=== PATIENT | female | born 1965 | race Caucasian/White ===

== ENCOUNTER 2019-11-19 11:01 | Inpatient (IN) ==
--- NOTE | 2019-11-19 13:16 | Diag Imaging Result Doc PS360 ---
CT ABDOMEN/PELVIS W/O CONTRAST - 11/19/2019 INDICATION: right flank pain COMPARISON: 10/08/2017 FINDINGS: There are small pulmonary nodules scattered throughout the lung bases bilaterally. These all appear grossly stable from prior. These measure 6 mm or less. Some of these are clearly calcified granulomas. Heart size is normal with no pericardial effusion. There is delayed enhancement of the kidneys compatible with renal failure. No urinary obstruction. No bowel obstruction or inflammation. Urinary bladder and rectum are normal. There are moderate degenerative changes of the spine. No acute or suspicious bony lesion. IMPRESSION: There is renal failure which was not present in September 2019. No structural abnormalities. This exam was performed using automated exposure control, adjustment of mA or kV according to patient size, and/or use of iterative reconstruction technique Electronically signed by Benji Rai 11/19/2019 1:13 PM
[2019-11-19 14:33] LABS: BASO# 0.03 X1000 (0.0-0.2); BASO% 0.4 % (0.0-0.8); EOS# 0.17 X1000 (0.0-0.7); EOS% 2.2 % (0.0-10.0); HEMOGLOBIN 11.6 g/dL (12.0-16.0); IMM GRAN# 0.02 X1000 (0.0-0.04); IMM GRAN% 0.3 % (0.0-0.5); LYMPH# 0.69 X1000 (1.2-3.4); MCH 30.2 PG (27-31); MCHC 32.2 g/dL (33-37); MCV 93.8 FL (81-99); MONO# 0.33 X1000 (0.11-0.59); MONO% 4.3 % (1.7-9.3); MPV 11.9 FL (7.4-10.4); NEUT# 6.46 X1000 (1.4-6.5); NEUT% 83.8 % (42.2-75.2); PLT 129 X1000 (130-400); RBC 3.84 XMIL (4.2-5.4); RDW 12.8 % (11.5-14.5)
[2019-11-19 15:01] LABS: ALB/GLOB RATIO 1.2; ALBUMIN 3.8 g/dL (3.5-5.0); CALCIUM 9.3 mg/dL (8.8-10.2); CREATININE 8.2 mg/dL (0.5-0.9); TOTAL BILIRUBIN 0.68 mg/dL (0.20-1.00); TOTAL PROTEIN 6.9 g/dL (6.3-8.3)
[2019-11-19 15:03] LABS: POTASSIUM 6.7 mmol/L (3.5-5.1)
[2019-11-19] MEDS ORDERED: D50W SYRINGE IV ONE ×2 (15:49→16:23)
[2019-11-19] MEDS ORDERED: ALBUTEROL 0.5% INH CONC FOR HYPERKALEMIA INH ONE (15:50)
[2019-11-19] MEDS ORDERED: CALCIUM CHLORIDE 1 GM in NS 100 ML IV ONE (15:50)
[2019-11-19] MEDS ORDERED: NS 1,000 ML IV ONE (15:51)
[2019-11-19] MEDS ORDERED: HUMULIN R IV ONE (16:23)
--- NOTE | 2019-11-19 16:32 | PROVIDER DOCUMENTATION ---
This chart was entered by Dirk Armendariz Scribe, acting as scribe for Bridgette Smiley MD. HPI-Abdominal Pain/GI Problem - General Chief Complaint: Abnormal Lab[s] Stated Complaint: LEFT FLANK PAIN Time Seen by Provider: 11/19/19 11:48 Source: patient Allergies/Adverse Reactions: Patient Allergies Allergy/AdvReac Type Severity Reaction Status Date / Time No Known Allergies Allergy Verified 11/19/19 11:42 Home Medications: Home Medication List Medication Instructions Recorded Confirmed Last Taken Type LISINOpril [Prinivil] 20 mg PO DAILY 10/18/14 11/19/19 11/19/19 History Aspirin [Aspirin EC] 81 mg PO DAILY 11/19/19 11/19/19 11/18/19 History Famotidine 20 mg PO DAILY 11/19/19 11/19/19 11/19/19 History Paroxetine HCl [Paxil] 20 mg PO DAILY 11/19/19 11/19/19 11/19/19 History Rosuvastatin Calcium 40 mg PO HS 11/19/19 11/19/19 11/18/19 History Sitagliptin Phos/Metformin HCl 50 - 500 mg PO BID 11/19/19 11/19/19 11/19/19 History [Janumet 50-500 mg Tablet] Trazodone [Desyrel] 50 mg PO HS 11/19/19 11/19/19 11/19/19 History - History of Present Illness-ABD Nature of Presenting Problems: 54 y/o F presents to the ED c/o dysuria, LLQ pain, Left flank pain and vomiting. Onset x2 days ago. Patient reports that she was referred to ED for "kidney failure". Patient's mother reports that patient had outpatient blood work drawn yesterday. Patient has lost 12 lbs. in 3 weeks. Patient denies shortness of breath, fever and all other symptoms. Abdominal Pain Onset Location: reports: LLQ, flank Pain Radiation: reports: no radiation Quality of Pain: reports: aching, burning Severity in ED: reports: moderate Onset/Duration: reports: 2 days ago Timing: reports: still present Activities at Onset: reports: none Review of Systems - Adult - REVIEW OF SYSTEMS - ADULT Constitutional: denies: chills, fever Eyes: reports: no symptoms reported Ears, Nose, Mouth & Throat: reports: no symptoms reported Cardiovascular: denies: chest pain, palpitations Respiratory: reports: no symptoms reported Gastrointestinal: reports: abdominal pain, nausea, vomiting. denies: constipation, diarrhea Genitourinary: reports: dysuria, flank pain. denies: discharge Musculoskeletal: reports: no symptoms reported Integumentary: reports: no symptoms reported Neurological: denies: dizziness/vertigo, headache/migraines Psychiatric: reports: no symptoms reported Endocrine: reports: no symptoms reported Hematologic/Lymphatic: reports: no symptoms reported Allergic/Immunologic: reports: no symptoms reported All Other Systems: Reviewed and Negative Past History - Adult - PAST MEDICAL HISTORY-ADULT Review of Records: reports: Nursing Assessment Review, Medications Reviewed Major Childhood Illnesses: reports: denies history Cardiovascular: reports: HTN, hyperlipidemia Respiratory: reports: denies history Gastrointestinal: reports: denies history Obstetrical/Gynecological: reports: denies history Genitourinary: reports: denies history Musculoskeletal: reports: denies history Neurological: reports: denies history Psychiatric: reports: anxiety, depression Endocrine/Immune: reports: Diabetes Other Conditions: reports: denies history - PRIOR SURGERIES/PROCEDURES Surgical/Procedure History: reports: none - IMMUNIZATION STATUS Childhood Immunizations: See Nurse Assessment Flu Vaccine: See Nurse Assessment - FAMILY HISTORY Family History: reviewed, not pertinent - SOCIAL HISTORY Smoking: denies Alcohol Use Frequency: never Physical Exam-General - PHYSICAL EXAM-ADULT Initial Vital Signs Reviewed: Yes (blood pressure on exam 97/47) - CONSTITUTIONAL General Appearance: alert, no apparent distress - EYES Eyes: pink conjunctivae - HEAD, EARS, NOSE, MOUTH & THROAT HENMT: moist mucous membranes, normal ENT inspection - NECK Neck: full range of motion, normal inspection - RESPIRATORY Respiratory: lungs clear, normal breath sounds, no respiratory distress, no accessory muscle use - CARDIOVASCULAR Cardiovascular: normal peripheral pulses, regular rate, rhythm - GASTROINTESTINAL (ABDOMEN) Abdominal Exam: non tender, soft - LYMPHATIC Lymphatic: no adenopathy - MUSCULOSKELETAL Back Exam: normal inspection Extremity: normal inspection - SKIN Integumentary: normal color, warm/dry - NEUROLOGIC Neurologic: no motor/sensory deficits - PSYCHIATRIC Psych/Mental Status: normal mood/affect, oriented x 3 Progress - PLAN OF CARE/RESULTS Progress/Plan/Lab Results: Vital Signs - 8 hr 11/19/19 11:09 Temperature 97.4 F L Pulse Rate 79 Respiratory Rate 19 Blood Pressure 91/63 O2 Sat by Pulse Oximetry 98 Laboratory Results - last 24 hr 11/19/19 11:58 POC Glucose 48 L Orders Category Date Time Status Saline Loc DIRECTED Care 11/19/19 12:21 Active NPO Diet 11/19/19 12:[address] ABDOMEN/PELVIS W/O CONTRAST [CT] Stat Exams 11/19/19 12:21 Ordered AMYLASE [CHEM] Stat Lab 11/19/19 12:21 Uncollected CBC WITH ELECTRONIC DIFF [HEME] Stat Lab 11/19/19 12:21 Uncollected COMPREHENSIVE METABOLIC PANEL [CHEM] Stat Lab 11/19/19 12:21 Uncollected LIPASE [CHEM] Stat Lab 11/19/19 12:21 Uncollected URINALYSIS W/POSS RFLX CULT [URINALYSIS] Stat Lab 11/19/19 12:21 Uncollected Result Diagrams: 11/19/19 14:19 11/19/19 14:19 - CONSULTS/PCP/HOSPITALIST Notification #1 *Consult/PCP/Hospitalist*: [facility] Time Discussed: 16:32 Consult Disposition: Admit ([facility] accepted patient for Dr Dodd) Departure - Departure Date of Disposition Decision: 11/19/19 Time of Disposition Decision: 16:31 DIAGNOSIS: Hyperkalemia Renal failure Qualifiers: Renal failure chronicity: acute Acute renal failure type: unspecified Qualified Code(s): N17.9 - Acute kidney failure, unspecified Disposition: ADMITTED INPATIENT 09 Certified Medical Emergency: Emergent Condition: Critical - Critical Care Note This patient required my direct & personal management of CC.: Yes Total Time (mins): 31 Critical Care Statement: This patient required my direct personal management to treat or rule out processes, the absence of which, could potentiallly result in sudden, clinically significant life or limb threatening deterioration. Attestation - Physician/ MICHAEL Attestation Patient care was provided by Advanced Practice Provider:: No The physician spent face to face time with patient:: Yes Advanced Practice Provider documentation review:: Supervising physician onsite and consulted in the evaluation and care of this patient. The physician did have a face to face encounter with the patient. This chart was documented by the indicated scribe, (Dirk Armendariz Scribe) and accurately reflects the services I performed and decisions made by me, Bridgette Smiley MD, as attested by the provider's signature.
[2019-11-19] MEDS ORDERED: SODIUM BICARBONATE 8.4% IV PUSH ONE (17:04)
[2019-11-19] MEDS ORDERED: VELTASSA PO ONE (17:04)
[2019-11-19] MEDS ORDERED: ZOFRAN IV ONE (17:32)
--- NOTE | 2019-11-19 17:39 | HISTORY AND PHYSICAL ---
HISTORY OF PRESENT ILLNESS: This is a 54-year-old who lives by herself in [place] behind her parents. Her past medical history is consistent with anxiety and depression, hypertension, and that is really about it, but for the last month and a half, she has not felt good. She has persistent nausea and vomiting. She has not been eating or drinking much. Her primary care doctor sent her to the emergency room, I think last week and her creatinine was 5.5, and she came back to the emergency room just feeling poorly, and her creatinine was up to 8 with potassium of 6. She denies any fever or chills. No change in her bowels. No cough or sputum production. No trouble breathing. No chest pain or palpitations. No abdominal pain. She did develop a little left lower quadrant discomfort, but really for the most part, denies any abdominal pain. Abdominal and pelvic CT done in the emergency room, there are small pulmonary nodules scattered throughout the lung base bilaterally. These appear grossly stable, measure 6 mm or less, clearly calcified granulomas. Heart size is normal. No pericardial effusion. Delayed enhancement of the kidneys compatible with renal failure. No urinary obstruction. No bowel obstruction or inflammation. Urinary bladder and rectum are normal. This was compared to film on 10/08/2017. FAMILY HISTORY: Positive for cancer, diabetes, and coronary artery disease. SOCIAL HISTORY: Negative for alcohol or tobacco. DIAGNOSTIC DATA: Note, she had a pelvic ultrasound done yesterday, and she had a 1.8 cm right ovarian cyst, a 1.9 cm left ovarian cyst, otherwise unremarkable. She had a head CT done on 11/18/2019, negative exam, was without contrast. Abdominal ultrasound done on 11/18/2019, a few small hyperechoic liver lesions measuring 0.9 cm, which represent cavernous hemangiomas. There was diffusely mild echogenic renal cortices which can be seen with renal medical disease versus technical artifact. She had an abdominal and pelvic CTA done on 10/08/2017, small left ovarian cyst, borderline enlarged left inguinal lymph nodes, fatty liver, old compression deformity at L5. REVIEW OF SYSTEMS: General: She has lost quite a bit of weight in the last couple weeks. I think about 20 pounds by her report. Not eating or drinking. No fever or chills. HEENT: No change in visual or hearing acuity. Respiratory: No increased work of breathing or dyspnea. Cardiovascular: No chest pain or tachy palpitation. Gastrointestinal/Genitourinary: No change in her bowels. No gross hematochezia. No hemoptysis, but she has had nausea and she has vomited several times each day for the last, she would say, 4 weeks or so. Musculoskeletal/Neurologic: No focal complaints. Her strength is good. She is able to ambulate. No trouble with her speech or swallow. No trouble getting food down. Endocrinologic/hematologic: No significant history. PHYSICAL EXAMINATION: GENERAL: Well-developed, well-nourished, white female. HEENT: Pupils are equal and round. LUNGS: Clear in all lung coleman. CVP less than 6 cm. No elevation of CVP appreciated. PMI nondisplaced. CARDIOVASCULAR: Regular rhythm and rate without murmur or S3. ABDOMEN: Soft, nondistended, nontender. EXTREMITIES: Without clubbing, cyanosis, or edema. NEUROLOGIC: Grossly intact without lateralizing deficits. VITAL SIGNS: Temperature 97.4 degrees, pulse 79, respirations 18, blood pressure 91/63. Weight 126 pounds. Height 4 feet 9 inches. O2 saturation is 98%. NECK: Supple. No lymphadenopathy or adenopathy. LABORATORY DATA: White blood cell count is 7700, hematocrit is 36, platelet count 129,000. Sodium 130, potassium 6.7, chloride 90, BUN 89, creatinine 8.2, blood sugar 66, calcium 9.3, AST is 500, ALT is 336, albumin is 3.8, lipase is 128, amylase is 161. ASSESSMENT AND PLAN: 1. Azotemia, acute kidney injury, and we have recently given her some more contrast. She does appear to be volume contracted and so we are going to give her volume. We will give her normal saline and will run it at 125 mL an hour. We will check an echocardiogram and make sure her left ventricular function is good. We will give her some Veltassa. 2. Hyperkalemia. No cardiac symptoms, but we will give her some Veltassa. I think it is 8.4 mg p.o. now. We will give her an amp of bicarbonate, and will give her some D50 and 10 units of insulin. 3. Diabetes mellitus type 2. Her sugars are a little low, so we will check a hemoglobin A1c. We will follow her sugars with patterned sugars. We will put her on full liquids for now because of the nausea. 4. Elevation in transaminases. We will check a hepatitis profile, repeat an ultrasound of her kidneys and liver tomorrow. 5. History of hypertension. Aware. We will follow her blood pressures. Blood pressures at the present time are low. 6. I could not rule out sepsis, although it does not look like it is infectious sepsis, but we will cover with Rocephin 1 g now and then q.24 hours, and I think we will start her on some Zyvox, too, until we know there is no infection. We will get some blood cultures. We will check urine for culture. 7. Review of her medications. She is on lisinopril, we are going to hold that. She is on rosuvastatin, we are going to hold that. Janumet, we will hold. Trazodone, I think she can have 50 mg at bedtime. Aspirin 81 mg a day, we will continue. We will stop the famotidine. Note, she has an acidosis, non-anion gap, mild. cc: Tavo Killian MD
[2019-11-19 18:28] LABS: FREE T4 0.9 ng/dL (0.93-1.70); TSH 2.74 uIUmL (0.27-4.20)
[2019-11-19] MEDS: NS 1,000 ML IV SCH (19:01)
[2019-11-19] MEDS: HUMALOG SUBQ SCH (21:00)
[2019-11-19 22:03] LABS: URINE SOURCE CATH
[2019-11-19 22:17] LABS: UR CREAT RANDOM 56.2 mg/dL (11-20)
[2019-11-19] MEDS: PROTONIX PO SCH (22:18)
[2019-11-19] MEDS: DESYREL PO SCH (22:20)
[2019-11-19 23:03] LABS: BILIRUBIN URINE NEGATIVE (NEGATIVE); BLOOD URINE LARGE (NEGATIVE); COLOR ORANGE; GLUCOSE URINE NEGATIVE (NEGATIVE); KETONE URINE 10 mg/dL (NEGATIVE); LEUKOCYTES URINE NEGATIVE (NEGATIVE); NITRITE URINE NEGATIVE (NEGATIVE); PH URINE 5.5; PROTEIN URINE 200 mg/dL (NEGATIVE); SP GRAVITY URINE 1.021; TURBIDITY URINE HAZY (CLEAR); UROBILINOGEN URINE NORMAL (NORMAL)
[2019-11-19 23:05] LABS: UR EPITHELIAL CELLS <10 /HPF (<10); URINE BACTERIA NEGATIVE /HPF; URINE RBC TNTC /HPF (<10)
[2019-11-20] MEDS ORDERED: NS 1,000 ML IV ONE (03:12)
[2019-11-20] MEDS: NS 1,000 ML IV SCH ×3 (03:43→18:17)
[2019-11-20 03:46] LABS: URINE SOURCE CATH
[2019-11-20 03:47] LABS: BILIRUBIN URINE NEGATIVE (NEGATIVE); BLOOD URINE LARGE (NEGATIVE); COLOR ORANGE; GLUCOSE URINE NEGATIVE (NEGATIVE); KETONE URINE 10 mg/dL (NEGATIVE); LEUKOCYTES URINE NEGATIVE (NEGATIVE); NITRITE URINE NEGATIVE (NEGATIVE); PH URINE 5.5; PROTEIN URINE 100 mg/dL (NEGATIVE); SP GRAVITY URINE 1.014; TURBIDITY URINE HAZY (CLEAR); UROBILINOGEN URINE NORMAL (NORMAL)
[2019-11-20 03:55] LABS: UR EPITHELIAL CELLS <10 /HPF (<10); URINE BACTERIA NEGATIVE /HPF; URINE WBC <10 /HPF (<10)
[2019-11-20 04:13] LABS: URINE CASTS NONE SEEN; URINE CRYSTALS NONE SEEN; URINE SMALL ROUND CELLS NONE SEEN; URINE YEAST NONE SEEN
[2019-11-20] MEDS: HUMALOG SUBQ SCH ×4 (06:35→23:05)
[2019-11-20] MEDS: PROTONIX PO SCH ×2 (09:48→20:20)
[2019-11-20] MEDS: PAXIL PO SCH (09:49)
[2019-11-20] MEDS: ASPIRIN EC PO SCH (09:49)
[2019-11-20] MEDS: ZOFRAN IV PRN (10:03)
--- NOTE | 2019-11-20 10:31 | Diag Imaging Result Doc PS360 ---
EXAM: US ABDOMEN-COMPLETE HISTORY: Elevated LFTs TECHNIQUE: Abdominal ultrasound COMPARISON: CT from 11/19/2019 FINDINGS: Normal pancreatic body. Portions of the head and tail are obscured. Normal inferior vena cava. No abdominal aortic aneurysm. No focal hepatic abnormality. Normal gallbladder. No stones. The common bile duct measures 2 mm. Mild increased renal echotexture. No hydronephrosis. No splenomegaly. No ascites. IMPRESSION: Mild increased renal echotexture which can be seen with medical renal disease Electronically signed by Minesh Eagle 11/20/2019 10:29 AM
--- NOTE | 2019-11-20 12:15 | PROGRESS NOTE ---
DATE: 11/20/2019 Ms. Galindo looks like she feels a little better this morning. Her lab from this morning still is pending. We will look at her renal function. OBJECTIVE: She remains afebrile, temperature 98.5 degrees, pulse 84, respirations 20, blood pressure 101/57.HEENT: Pupils are equal and round. Lungs: Clear in all lung coleman. Cardiovascular: Regular rhythm and rate without murmur or S3. Abdomen: Soft. Skin: Warm and dry. ASSESSMENT AND PLAN: They have had a hard time getting blood from her so we are going to see if we need central line versus a PICC line. Dr. Narvaez is discussing this with her. We do need to see what her electrolytes and creatinine are this morning. We will continue current orders. She is given normal saline 125 mL an hour, Protonix 40 mg p.o. b.i.d., Paxil 20 mg a day, trazodone 50 mg at bedtime. She had some hyperkalemia so we want to follow up on that too and has diabetes. Blood sugars have been 172, 55, 129. cc: Tavo Killian MD
--- NOTE | 2019-11-20 13:55 | OPERATIVE NOTE ---
PROCEDURE DATE: 11/20/2019 PREOPERATIVE DIAGNOSES: 1. Phlebosclerosis. 2. Acute kidney injury. POSTOPERATIVE DIAGNOSES: 1. Phlebosclerosis. 2. Acute kidney injury. PROCEDURE: Ultrasound-guided right common femoral vein Trialysis catheter placement. SURGEON: Parminder Young MD. SMELTER CHARGER: None. ANESTHESIA: Local administered by the surgeon. FINDINGS: Good caliber right common femoral vein. BRIEF HISTORY: A 54-year-old female with acute kidney injury and lack of IV access. It was felt that she needed IV access and she may need dialysis in the future so felt that she would benefit from a Trialysis catheter. The risks, benefits, and alternatives were discussed. All questions answered. DESCRIPTION OF PROCEDURE: After informed consent was obtained, the patient remained in her ICU bed. The right groin was prepped and draped in sterile fashion. After a time-out we used the ultrasound to identify the right common femoral vein. We were able used local anesthetic to anesthetize the skin. We used the ultrasound to guide our access to the right common femoral vein. I was able to pass a wire and then using Seldinger technique, serially dilate up the tract to place a Trialysis catheter into the vein. All ports aspirated and flushed easily. We did confirm that the wire was going into the vein and not the artery by ultrasound. We secured it in place. A sterile dressing was applied patient tolerated the procedure well and remained in her ICU bed. cc: Parminder Young MD
[2019-11-20 14:18] LABS: BASO# 0.01 X1000 (0.0-0.2); BASO% 0.2 % (0.0-0.8); EOS# 0.02 X1000 (0.0-0.7); EOS% 0.3 % (0.0-10.0); HEMATOCRIT 29.9 % (37.0-47.0); HEMOGLOBIN 9.6 g/dL (12.0-16.0); IMM GRAN# 0.02 X1000 (0.0-0.04); IMM GRAN% 0.3 % (0.0-0.5); LYMPH# 0.44 X1000 (1.2-3.4); LYMPH% 6.7 % (20.5-51.1); MCH 30.2 PG (27-31); MCHC 32.1 g/dL (33-37); MONO# 0.39 X1000 (0.11-0.59); MPV 12.5 FL (7.4-10.4); NEUT# 5.66 X1000 (1.4-6.5); NEUT% 86.5 % (42.2-75.2); PLT 95 X1000 (130-400); RBC 3.18 XMIL (4.2-5.4); WBC 6.54 X1000 (4.8-10.8)
[2019-11-20 14:24] LABS: INR 1.09; PROTIME 14.2 Seconds (11.0-16.0)
[2019-11-20 14:27] LABS: HEMOGLOBIN A1C 5.9 % (4.8-6.0)
[2019-11-20 14:37] LABS: BANDS 2 % (0-1); LYMPHS 8 % (21-51); MONO 2 % (1-9); SEGS 88 % (42-75)
[2019-11-20 15:06] LABS: CREATININE 8.6 mg/dL (0.5-0.9); POTASSIUM 7.1 mmol/L (3.5-5.1)
--- NOTE | 2019-11-20 15:07 | NEPHROLOGY CONSULTATION ---
DATE: 11/20/2019 REASON FOR CONSULTATION: Acute kidney injury. HISTORY OF PRESENT ILLNESS: Ms. Galindo is a 54-year-old white female who lives in [facility]. She lives alone but in a trailer behind her mother's house. She has been not feeling well for weeks including anorexia, nausea and what the mother described as "depression," she means by this decreased activity, decreased intake, crying continuously. This has been going on for 6 to 8 weeks. She has seen Dr. Mirza several times including earlier this week at which time she underwent laboratory data collection and then also a CT of the head with and without contrast. That study was done on the and was negative exam. She also had laboratory data collected which found creatinine over 3. She had labs repeated on and was referred to us on Friday. Having reviewed those labs her creatinine was over 5 so we directed the patient to the emergency room where they were seen and admitted. She was not seen by us as an outpatient. No voiding symptoms. No recent new medications. No abdominal symptoms. PAST MEDICAL HISTORY: Includes hypertension, hyperlipidemia, diabetes. HOME MEDICATIONS: Include lisinopril, aspirin, famotidine, paroxetine, rosuvastatin, trazodone, sitagliptin, metformin. ALLERGIES: None. SOCIAL HISTORY: As above. No alcohol or tobacco. FAMILY HISTORY: Noncontributory. REVIEW OF SYSTEMS: Noncontributory. PHYSICAL EXAMINATION: Vital Signs: Blood pressure 115/67, heart rate 89, respirations 16, afebrile. General: No acute distress. Mildly obese sitting erect. Skin is warm and dry. Conjunctivae are pink. Pupils are equal. Oropharynx is clear. Normal tongue, normal teeth, moist. Neck: Supple. Trachea is midline. Neck veins are not distended. PMI not palpable. Regular rate and rhythm without murmurs, rubs, gallops. Lungs: Have equal excursion, equal breath sounds. No dullness, crackles, wheezes, accessory muscle use, retractions. Abdomen: Soft, nontender, bowel sounds present. No palpable organomegaly. Extremities: No edema, clubbing or cyanosis. Neurologic: Nonfocal. IMPRESSION: Acute kidney injury. Creatinine 8.2 on the at 1419. Repeat laboratory data has been delayed because of difficulty with intravenous access. She is having a central venous catheter placed by Dr. Young and we will remeasure labs. If her potassium continues to rise then we will have to consider treatment with dialysis. Her CT of the abdomen did not disclose any evidence of obstruction. She did have retained intravenous contrast in her kidneys from her study on the . On this basis, she is likely to experience acute tubular necrosis as well. Repeat lab data. We will follow. cc: Will Narvaez MD
[2019-11-20] MEDS ORDERED: D50W SYRINGE IV ONE (15:13)
[2019-11-20] MEDS ORDERED: SODIUM BICARBONATE 8.4% IV PUSH ONE (15:14)
[2019-11-20] MEDS ORDERED: HUMULIN R IV ONE (15:14)
[2019-11-20] MEDS ORDERED: VELTASSA PO ONE (15:15)
[2019-11-20 15:18] LABS: CK INDEX 0.5 (0.0-2.5); CK-MB 89.6 ng/mL (0.0-5.0)
[2019-11-20] MEDS: ALBUTEROL 0.5% INH CONC FOR HYPERKALEMIA INH SCH ×2 (17:42→21:26)
[2019-11-20 18:31] LABS: C REACTIVE PROT QUANT 3.94 mg/L (0.00-5.00)
[2019-11-20] MEDS ORDERED: D50W SYRINGE IV SCH (20:00)
[2019-11-20] MEDS ORDERED: HUMULIN R IV SCH (20:00)
[2019-11-20] MEDS: DESYREL PO SCH (20:20)
[2019-11-20] MEDS: LOKELMA POWDER PACKET PO SCH (22:58)
[2019-11-21] MEDS: NS 1,000 ML IV SCH ×3 (01:07→17:01)
[2019-11-21] MEDS: HUMALOG SUBQ SCH ×4 (06:35→20:00)
[2019-11-21] MEDS: LOKELMA POWDER PACKET PO SCH ×3 (08:25→16:38)
--- NOTE | 2019-11-21 08:39 | PROGRESS NOTE ---
DATE: 11/21/2019 SUBJECTIVE: Ms. Galindo is awake and alert. She says she is less nauseated. She feels a little bit better. OBJECTIVE: Vital Signs: She remains afebrile, temp 97.6 degrees, pulse 96, respirations 13, blood pressure 125/58. HEENT: Pupils are equal and round. Lungs: Clear in all lung coleman. Cardiovascular: Regular rhythm and rate without murmur or S3. Abdomen: Soft. Skin: Warm and dry. No pedal edema. Urine output from yesterday was about 1500 mL. ASSESSMENT AND PLAN: 1. Acute kidney injury. Creatinine was 8.2 on 11/19/2019. We are giving her fluids, and creatinine on 11/20/2019 was 8.6. Lab is pending this morning. 2. Hematocrit was 36 when she came in; it is 29. I think that is delusional. I think she was dehydrated and volume contracted. Appreciate Dr. Young. He placed an ultrasound-guided right common femoral vein Trialysis catheter. Blood pressure appears to be well controlled. REVIEW OF ORDERS: She is on aspirin 81 mg a day, Protonix 40 mg b.i.d., Paxil 20 mg a day, trazodone 50 mg at bedtime. Note, she came in with hyperkalemia, so I do want to follow up on that as well. Her potassium was 7.1. Blood sugars look good. In regards to her nausea, I suspect she has some underlying gastritis. Will continue the proton pump inhibitors. Right now, she is getting normal saline at 125 mL an hour. Note, she does have an anion gap metabolic acidosis. cc: Tavo Killian MD
--- NOTE | 2019-11-21 08:51 | PROGRESS NOTE ---
DATE: 11/21/2019 ADDENDUM REPORT Note that her CKs were 18,000, consistent with rhabdomyolysis, so she may benefit from a bicarb drip. cc: Tavo Killian MD
[2019-11-21 10:34] LABS: HEMATOCRIT 26.8 % (37.0-47.0); HEMOGLOBIN 8.6 g/dL (12.0-16.0); MCH 30.2 PG (27-31); MCHC 32.1 g/dL (33-37); RBC 2.85 XMIL (4.2-5.4); RDW 13.3 % (11.5-14.5); WBC 4.77 X1000 (4.8-10.8)
[2019-11-21 10:36] LABS: ALBUMIN 2.6 g/dL (3.5-5.0); CALCIUM 7.7 mg/dL (8.8-10.2); CREATININE 8.3 mg/dL (0.5-0.9); PHOSPHORUS 4.5 mg/dL (2.7-4.5); POTASSIUM 5.2 mmol/L (3.5-5.1)
--- NOTE | 2019-11-21 10:59 | GASTROENTEROLOGY CONSULTATION ---
DATE: 11/20/2019 REASON FOR CONSULTATION: Abnormal LFTs. HISTORY OF PRESENT ILLNESS: This is a 54-year-old lady, has a very strange presentation. She has some nausea and vomiting, not able to eat much for the last several days. She was advised by her primary physician to go to the ER, where she was found to be in kidney failure. Admitted to the hospital for further evaluation. She had an abdominal and pelvic CT done. FAMILY HISTORY: Positive for cancer, diabetes, coronary artery disease. SOCIAL HISTORY: Negative for alcohol or tobacco. REVIEW OF SYSTEMS: Again, nausea, weight loss. Unable to eat. PHYSICAL EXAMINATION: Well developed, well nourished lady in no acute distress. Mild conjunctival pallor. Neck: Supple. No icterus. Heart and lungs normal. Abdomen: Soft, nontender. Bowel sounds present and normal. LABORATORY DATA: Hematocrit 36. AST 500, ALT 336. Creatinine 8.2. Initial CK is high. IMPRESSION: 1. Acute kidney injury. It is possible that she may have rhabdomyolysis, although the numbers being awaited. 2. Hyperkalemia secondary to renal failure. 3. Acute liver injury. It is probably related to whatever caused the acute kidney injury. I am not sure if she has dehydration or hypotension in any of the last several days. 4. Diabetes mellitus type 2. 5. Hypertension. 6. Sepsis possibility but she looks quite stable. cc: Niki Forde MD
[2019-11-21] MEDS: PAXIL PO SCH (11:08)
[2019-11-21] MEDS: ASPIRIN EC PO SCH (11:08)
[2019-11-21] MEDS: PROTONIX PO SCH ×2 (11:08→20:33)
[2019-11-21] MEDS: ZOFRAN IV PRN (13:27)
[2019-11-21] MEDS: DESYREL PO SCH (20:33)
[2019-11-22] MEDS: NS 1,000 ML IV SCH ×3 (02:00→17:40)
[2019-11-22] MEDS: HUMALOG SUBQ SCH ×4 (06:46→21:16)
[2019-11-22 07:20] LABS: HEMATOCRIT 27.5 % (37.0-47.0); HEMOGLOBIN 8.8 g/dL (12.0-16.0); MCH 29.9 PG (27-31); MCV 93.5 FL (81-99); MPV 12.2 FL (7.4-10.4); RBC 2.94 XMIL (4.2-5.4); RDW 13.2 % (11.5-14.5); WBC 4.21 X1000 (4.8-10.8)
[2019-11-22 07:28] LABS: ALBUMIN 2.4 g/dL (3.5-5.0); DIRECT BILIRUBIN 0.1 mg/dL (0.00-0.20); TOTAL BILIRUBIN 0.41 mg/dL (0.20-1.00); TOTAL PROTEIN 4.7 g/dL (6.3-8.3)
[2019-11-22 07:41] LABS: MAGNESIUM 1.6 mg/dL (1.5-2.7)
[2019-11-22 08:15] LABS: ALBUMIN 2.4 g/dL (3.5-5.0); PHOSPHORUS 5.2 mg/dL (2.7-4.5); POTASSIUM 5.2 mmol/L (3.5-5.1)
[2019-11-22 08:27] LABS: CALCIUM 6.8 mg/dL (8.8-10.2)
[2019-11-22] MEDS ORDERED: CALCIUM GLUCONATE IV PUSH ONE (08:32)
--- NOTE | 2019-11-22 09:17 | PROGRESS NOTE ---
DATE: 11/22/2019 SUBJECTIVE: Ms. Galindo is sitting up in a chair. She feels much better. Breathing is comfortable. She remains afebrile. OBJECTIVE: Temperature 99.2 degrees, pulse 82, respirations 26, blood pressure 152/77. Pupils are equal and round. Lungs are clear in all lung coleman. Cardiovascular Examination: Regular rhythm and rate without murmur or S3. Urine output was 1900 mL. Blood sugars 97, 81, and 92. ASSESSMENT/PLAN: 1. Acute kidney injury with rhabdomyolysis. Her numbers are improving. Her serum creatinine has stayed at 8. Her CK, we will continue to follow. Potassium is 5.2. Urine output is good. Calcium is 6.8 with an albumin of 2.4 so I did give her 1 amp of calcium gluconate. Volume status looks good. 2. Hematocrit is 27, hemoglobin 8.8 which is stable as well. Continue present fluids. Her haptoglobin level was 206. REVIEW OF HER ORDERS: Getting normal saline at 125 mL an hour, Paxil 20 mg p.o. daily, trazodone 50 mg at bedtime, aspirin 81 mg a day. cc: Tavo Killian MD
[2019-11-22] MEDS: PROTONIX PO SCH ×2 (09:29→21:15)
[2019-11-22] MEDS: ASPIRIN EC PO SCH (09:29)
[2019-11-22] MEDS: PAXIL PO SCH (09:29)
--- NOTE | 2019-11-22 10:23 | GASTROENTEROLOGY PROGRESS NOTE ---
DATE: 11/22/2019 SUBJECTIVE: Resting in bed. She is feeling better. She denies any new complaints of rigors, or chills. She denies any nausea or vomiting. No bowel movement was documented so far since admission. Review of her records did reveal that she had a fever spike of 99.8 yesterday at 3:55 p.m. I discussed the lab results with her. OBJECTIVE: Vital Signs: Temperature 99.2 degrees, pulse 82, respiratory rate 26, blood pressure 152/77, saturating 97% on room air. Body weight of 127 pounds, BMI 27.5 kg/m2. General: She is moderately well-nourished, sitting in bed in no acute distress. HEENT: Pale conjunctivae. No icterus. Pupils equal, reactive to light. Neck: Supple. Abdomen: Soft, nontender, nondistended. No guarding or rebound. Extremities: No cyanosis or clubbing. Neurologic: Alert, awake, oriented x3. LABORATORY DATA: Her hemoglobin and hematocrit are 8.8 and 27.4, white count of 4.21, platelet count of 86,000. Sodium 141, potassium 5.2, chloride 110, bicarb of 15, anion gap 16, BUN 74, creatinine 0.8, glucose of 101, calcium is 6.8. Phosphorus 5.2, magnesium 1.6. Total bilirubin is 0.41, direct of 0.1, AST 237, ALT 214, alkaline phosphatase 77, total protein is 4.7, albumin of 2.4. Creatinine kinase is 14,133, which is trending down. MICROBIOLOGY: Urine culture showing no growth. IMAGING: CT of the abdomen and pelvis done on 11/19/2019 showed small pulmonary nodules scattered throughout the lung bases bilaterally. They appear stable from prior measurement of 6 mm or less. There is delayed enhancement of the kidneys compatible with renal failure. No urinary obstruction. No bowel obstruction or inflammation. Moderate degenerative changes of the spine. No acute or suspicious bone lesions. IMPRESSION AND PLAN: 1. Acute kidney injury. 2. Rhabdomyolysis. 3. Anemia. 4. Elevated liver enzymes. 5. Hypoalbuminemia. 6. Electrolyte imbalance. 7. Type 2 diabetes. 8. Hypertension. 9. Question of sepsis. RECOMMENDATIONS: Continue the patient on IV fluids at 125 mL/hour for treatment of rhabdomyolysis and acute renal insufficiency, which is likely secondary to rhabdomyolysis. We will check hepatitis panel, AUGUSTINE. Her liver enzyme could be falsely elevated secondary to rhabdomyolysis. CT scan did not show any evidence of any liver pathology. Will continue on GI prophylaxis with Protonix. Will continue to watch her blood counts, including hematocrit, and transfuse as needed. She is on Zofran 4 mg IV every 4 hours as needed for nausea. She is on sliding scale Humalog for diabetes. She continues on renal diet. She has no bowel movement since admission, so we will start her on bowel regimen with MiraLAX once daily. The patient may need outpatient EGD and colonoscopy for workup of anemia. We also will check liver enzymes as an outpatient after recovery from rhabdomyolysis. We will follow along. The above plan of care was discussed with the patient and the nursing staff, and all questions were answered. Please call with any further questions. cc: MD Rozina Jackson MD Dr. Schmidt MTDD
[2019-11-22] MEDS: LOKELMA POWDER PACKET PO SCH ×2 (11:28→14:00)
[2019-11-22 13:46] LABS: URINE SOURCE CATH
[2019-11-22 13:50] LABS: BILIRUBIN URINE NEGATIVE (NEGATIVE); BLOOD URINE LARGE (NEGATIVE); COLOR STRAW; GLUCOSE URINE NEGATIVE (NEGATIVE); KETONE URINE NEGATIVE (NEGATIVE); LEUKOCYTES URINE NEGATIVE (NEGATIVE); NITRITE URINE NEGATIVE (NEGATIVE); PROTEIN URINE 100 mg/dL (NEGATIVE); SP GRAVITY URINE 1.011; TURBIDITY URINE CLEAR (CLEAR); UROBILINOGEN URINE NORMAL (NORMAL)
[2019-11-22 13:56] LABS: UR EPITHELIAL CELLS <10 /HPF (<10); URINE BACTERIA NEGATIVE /HPF; URINE WBC <10 /HPF (<10)
[2019-11-22 13:57] LABS: URINE YEAST NONE SEEN
[2019-11-22 20:45] LABS: IRON SATURATION 27 %; TIBC 190 ug/dL; TOTAL IRON 52 ug/dL (49-151); UNBOUND IRON 138 ug/dL (112-346)
[2019-11-22] MEDS: DESYREL PO SCH (21:15)
[2019-11-23] MEDS: NS 1,000 ML IV SCH ×4 (00:08→18:35)
[2019-11-23 06:21] LABS: HEMATOCRIT 25.7 % (37.0-47.0); HEMOGLOBIN 8.5 g/dL (12.0-16.0); MCH 30.9 PG (27-31); MCHC 33.1 g/dL (33-37); MCV 93.5 FL (81-99); MPV 11.9 FL (7.4-10.4); RBC 2.75 XMIL (4.2-5.4); RDW 12.8 % (11.5-14.5); WBC 4.64 X1000 (4.8-10.8)
[2019-11-23] MEDS: ZOFRAN IV PRN (06:26)
[2019-11-23] MEDS: HUMALOG SUBQ SCH ×4 (06:26→20:55)
--- NOTE | 2019-11-23 06:50 | NEPHROLOGY PROGRESS NOTE ---
DATE: 11/22/2019 SUBJECTIVE: She is awake, alert, sitting up in a chair. No shortness of breath, nausea, vomiting. OBJECTIVE: Vital Signs: Blood pressure 154/80, heart rate 76, respirations 13, afebrile. Intake 4.2 L. Output 1.1 L. General: No acute distress. Skin: Warm and dry. Neck: Neck veins are not appreciated in the erect position. Heart: Regular without gallops or murmurs. Lungs: Equal, no crackles. Abdomen: Soft, bowel sounds are present. Extremities: No edema, clubbing or cyanosis. IMPRESSION: #1 acute kidney injury. Acute tubular necrosis secondary to rhabdomyolysis. Urine output is improving. BUN and creatinine are modestly improved today. Persistent hyperkalemia and metabolic acidosis related to her renal failure. Continue current IV fluids. Re-evaluate in the morning. cc: Will Narvaez MD
[2019-11-23 07:06] LABS: MAGNESIUM 1.6 mg/dL (1.5-2.7)
[2019-11-23 07:49] LABS: ALBUMIN 2.3 g/dL (3.5-5.0); CREATININE 7.8 mg/dL (0.5-0.9); POTASSIUM 4.4 mmol/L (3.5-5.1)
[2019-11-23 08:29] LABS: CALCIUM 6.7 mg/dL (8.8-10.2)
[2019-11-23] MEDS ORDERED: LOKELMA POWDER PACKET PO ONE (08:38)
[2019-11-23] MEDS ORDERED: CALCIUM GLUCONATE IV PUSH ONE (08:39)
--- NOTE | 2019-11-23 09:42 | ECHO REPORT ---
ORDER DATE: 11/23/2019 MEASUREMENTS: Septal thickness 0.8, left ventricular internal diameter in diastole 4.2, posterior wall thickness 0.8, left ventricular internal diameter in systole 2.7, aortic root 2.6, left atrium 3.5. SUMMARY: 1. Adequate quality study. 2. Aortic valve is trileaflet and opens normally on 2-dimensional images. Mitral, tricuspid, and pulmonic valves are without evidence of structural abnormality with very mild mitral regurgitation, trace tricuspid regurgitation, and trace pulmonic insufficiency. The aortic root is normal in size. 3. Normal left ventricular dimensions demonstrated. The left ventricle appears somewhat hyperdynamic with an estimated left ventricular ejection fraction greater than 70%. No regional wall motion abnormality is evident. Left atrium, right atrium, and right ventricle are normal in size with preserved right ventricular systolic function. 4. No pericardial effusion. 5. Appearance of inferior vena cava suggests normal central venous pressure. cc: MD Marta Shah CRNP
[2019-11-23] MEDS: MIRALAX PO SCH (10:00)
[2019-11-23] MEDS: PAXIL PO SCH (10:00)
[2019-11-23] MEDS: ASPIRIN EC PO SCH (10:00)
[2019-11-23] MEDS: PROTONIX PO SCH ×2 (10:00→21:02)
--- NOTE | 2019-11-23 11:49 | GASTROENTEROLOGY PROGRESS NOTE ---
DATE: 11/23/2019 SUBJECTIVE: Ms. Galindo is a 54-year-old female sitting in the bed. She has denied any nausea, vomiting, denied any abdominal pain. The patient has denied having any bowel movements today. The patient is on a renal diet and is able to tolerate her diet well. OBJECTIVE: Vital signs: Temperature is 97.7, pulse 84, respirations 14, blood pressure 144/67, oxygen saturation 95% on room air. The patient's weight is 154 pounds. BMI is 33.3 kg per m sq. General: She is alert and oriented x3 and in no acute distress. HEENT: Pale conjunctivae. No icterus. PERRL. Neck: Supple. Lungs: Clear to auscultation. Cardiovascular: Regular rate and rhythm. Abdomen: Soft, nontender and nondistended. Active bowel sounds heard in all 4 quadrants. Extremities: No clubbing. No edema. Pedal pulses 2+ present bilaterally. Neurologic: She is alert and oriented x3. DIAGNOSTIC DATA: WBC is 12.64, RBC is 2.75, hemoglobin 8.5, hematocrit is 25.7, platelet count is 88,000. Her chemistries are from 11/22/2019. Sodium is 141, potassium 5.2, chloride 110, carbon dioxide 15, anion gap 16, BUN is 74, creatinine 8.0, glucose 101, calcium 6.8, phosphorus 5.2. Albumin 2.4. Total bilirubin is 0.41, AST is 237, ALT is 214, alkaline phosphatase is 77. The patient's urinalysis yesterday showed protein of 100, large amount of blood. The patient's echocardiogram has shown that her ejection fraction is greater than 70%. IMPRESSION AND PLAN: 1. Acute kidney injury. 2. Rhabdomyolysis. 3. Anemia. 4. Elevated liver enzymes. 5. Hypoalbuminemia. 6. Electrolyte imbalance. 7. Diabetes type 2. 8. Hypertension. 9. Sepsis. PLAN: Ms. Galindo is a 54-year-old female who is currently in the hospital for treatment of rhabdomyolysis and acute kidney injury. The patient's liver enzymes have been elevated. She is currently receiving IV fluids normal saline at 125 mL. We will continue her with PPI PO twice a day. She is on a bowel regimen MiraLAX 17 g PO daily. The patient is receiving Humalog as per sliding scale for her diabetes. We plan to do an EGD and a colonoscopy as an outpatient. We have discussed this with the patient and will follow up her in 3 to 4 weeks when she is discharged. We will continue to monitor the patient and follow the plan of care per PCP. This plan was discussed with Dr. Ordonez. Please call us for any further questions or concerns. Dictated by LILIANA Avilez for Álvaro Ordonez MD MTDD
[2019-11-23 12:33] LABS: HEPATITIS PROFILE ACUTE SEE COMMENTS
--- NOTE | 2019-11-23 12:36 | PROGRESS NOTE ---
DATE: 11/23/2019 SUBJECTIVE: I have seen and examined Ms. Galindo today. She refers to be doing well. The mother was at the bedside at the time of the encounter. Ms. Galindo denies any muscle pains. She has a remote history of diabetes mellitus, dyslipidemia, hypertension, was on metformin. This morning, she refers to be doing well. No new complaints. OBJECTIVE: Vital signs: Blood pressure is 144/67, pulse 84, respirations 14, temperature 97.7 degrees. General: Ms. Galindo is a 54-year-old female. She is in bed. She is not in any cardiopulmonary distress. Mucosa is pink and moist. Anicteric. Acyanotic. Neck: Supple. Chest: Good air entry bilaterally. There is no crepitations. No rhonchi. Cardiovascular: Regular rate and rhythm. There is no murmurs, no rubs. No gallops Gastrointestinal: Abdomen is soft, nontender. Bowel sounds present. Extremities: No pedal edema. She has mild edema on the lateral aspect of both hips. Central Nervous System: Patient is awake, alert, and oriented. There is a right femoral central line catheter. LABORATORY DATA: WBC is 4.64, hemoglobin is 8.5, platelet count of 88,000. Chemistry is also reviewed. Potassium is down to 4.4, chloride is 108, bicarbonate is still low at 15, creatinine is 7.8. IMAGING STUDIES: 1. CT scan of the abdomen which was done on admission shows renal failure. 2. Ultrasound shows mild increased renal echotexture which can be seen with medical renal disease. Echocardiogram shows an ejection fraction of 70%. ASSESSMENT: 1. Acute kidney injury presumably from acute tubular necrosis with possible rhabdomyolysis. 2. High anion gap metabolic acidosis on admission. The patient is slowly improving. She still continues to be remarkably acidotic with a bicarbonate of 15. 3. History of diabetes mellitus, presenting A1c 5.9. The patient was on Januvia and metformin. Metformin could potentially also could have contributed to some of her acidosis. She was also remarkably hypoglycemic on admission, which could have been because of the oral hypoglycemic agents. 4. Rhabdomyolysis. Patient is on fluids. Ms. Galindo was on atorvastatin, which could potentially have caused that. We also understand that she has been falling lately, which could also confound. 5. Elevated inflammatory markers. I think Ms. Galindo is clinically stable. She continues to be on normal saline at 125. She is acidotic, minimally elevated gap. I think she will probably benefit from a bicarbonate drip because of the rhabdomyolysis and the metabolic acidosis. However, the patient is also being seen by Nephrology, and we will defer any recommendations to them. cc: Calderon Sanchez MD MTDD
[2019-11-23 14:02] LABS: ANTINEUTROPHIL CYTOPLASMIC AB SEE COMMENTS
[2019-11-23] MEDS: DESYREL PO SCH (21:02)
--- NOTE | 2019-11-23 22:21 | NEPHROLOGY PROGRESS NOTE ---
DATE: 11/23/2019 SUBJECTIVE: No new complaints. OBJECTIVE: Vital Signs: Blood pressure 138/72, heart rate 72, respirations 29 afebrile. Intake 4.4 L. Output 1.2 L. General: No acute distress. Skin: Warm and dry. Neck: Neck veins are not distended. Heart: Regular. No gallops. Murmur present. Lungs: Equal. No crackles. Abdomen: Soft, nontender. Bowel sounds present. Extremities: 1+ edema. No clubbing or cyanosis. IMPRESSION: Acute kidney injury. Likely secondary to rhabdomyolysis causing acute tubular necrosis. Good urine output. BUN and creatinine have plateaued and perhaps beginning to improve. Continue IV fluids. cc: Will Narvaez MD
[2019-11-24] MEDS: NS 1,000 ML IV SCH (02:07)
[2019-11-24 06:31] LABS: HEMATOCRIT 24.1 % (37.0-47.0); MCH 30.9 PG (27-31); MCHC 33.2 g/dL (33-37); MCV 93.1 FL (81-99); RBC 2.59 XMIL (4.2-5.4); WBC 4.04 X1000 (4.8-10.8)
[2019-11-24] MEDS: HUMALOG SUBQ SCH ×4 (07:02→20:34)
--- NOTE | 2019-11-24 07:33 | Diag Imaging Result Doc PS360 ---
EXAM: CHEST-PORTABLE 11/24/2019 HISTORY: wheezing TECHNIQUE: AP portable at 0721 COMMENT: There is ill-defined opacity over both lung bases which was not the case on 12/23/2018. The heart size is within normal limits. IMPRESSION: Interstitial pulmonary edema. Electronically signed by Joon Barth 11/24/2019 7:31 AM
[2019-11-24 07:36] LABS: ALB/GLOB RATIO 0.9; CREATININE 7.1 mg/dL (0.5-0.9); DIRECT BILIRUBIN 0.1 mg/dL (0.00-0.20); PHOSPHORUS 4.5 mg/dL (2.7-4.5); POTASSIUM 4.2 mmol/L (3.5-5.1); TOTAL BILIRUBIN 0.23 mg/dL (0.20-1.00); TOTAL PROTEIN 4.3 g/dL (6.3-8.3)
[2019-11-24 08:01] LABS: CALCIUM 6.6 mg/dL (8.8-10.2)
[2019-11-24] MEDS ORDERED: CALCIUM GLUCONATE 2 GM in NS 100 ML IV ONE (08:23)
[2019-11-24] MEDS ORDERED: SODIUM BICARBONATE 8.4% 100 MEQ in D5W 1,000 ML IV SCH ×2 (08:30→12:24)
[2019-11-24] MEDS: ASPIRIN EC PO SCH (08:57)
[2019-11-24] MEDS: PAXIL PO SCH (08:57)
[2019-11-24] MEDS: MIRALAX PO SCH (08:57)
[2019-11-24] MEDS: PROTONIX PO SCH ×2 (08:57→20:34)
--- NOTE | 2019-11-24 11:38 | GASTROENTEROLOGY PROGRESS NOTE ---
DATE: 11/24/2019 SUBJECTIVE: Ms. Galindo is a 54-year-old female sitting in bed. The patient has denied any nausea, vomiting, abdominal pain. She was able to tolerate her breakfast well. OBJECTIVE: Vital Signs: Temperature 98.4 degrees, pulse 87, respirations 21, blood pressure 157/76, and oxygen saturation 100% on 2 liters nasal cannula. The patient's weight is 155 pounds. BMI is 33.6 kg/m2. General: She is alert, oriented x3, in no acute distress. HEENT: Pale conjunctivae. No icterus. [place]AR[place]. Neck: Supple. Lungs: Clear to auscultation. Cardiovascular: Regular rate and rhythm. Abdomen: Soft, nontender, nondistended. Active bowel sounds heard in all 4 quadrants. Extremities: No clubbing, no cyanosis, no edema. Pedal pulses 2+ present bilaterally. Neurologic: She is alert, oriented x3. LABS: WBCs of 4.04, RBC 2.59, hemoglobin 8, hematocrit 34.1, platelet count is 105,000. Sodium 142, potassium 4.2, chloride 111, carbon dioxide 15, anion gap 16, BUN is 65, creatinine is 7.1, glucose 84, calcium 6.6, phosphorus 4.5, total bilirubin 0.23, AST 182, ALT 185, alkaline phosphatase is 68, albumin is 2. IMAGING: Chest x-ray showed interstitial pulmonary edema. IMPRESSION AND PLAN: 1. Acute kidney injury. 2. Rhabdomyolysis. 3. Anemia. 4. Elevated liver enzymes. 5. Hypoalbuminemia. 6. Electrolyte imbalance. 7. Diabetes type 2. 8. Hypertension. 9. Sepsis. PLAN: Ms. Galindo is a 54-year-old female who is currently being treated for rhabdomyolysis and acute kidney injury. The patient's liver enzymes have been elevated. She is currently on IV fluids.sodium bicarbonate in D5W at 100 mL/hour. The patient is on a bowel regimen, MiraLAX 17 grams daily. She is receiving PPIs p.o. twice a day. We will follow her up in 3 to 4 weeks once the patient is discharged and plan to do an outpatient EGD and colonoscopy. This plan was discussed with Dr. Ordonez. Please call us for any further questions or concerns. Dictated by LILIANA Avilez for Álvaro Ordonez MD [facility]
[2019-11-24] MEDS ORDERED: LASIX IV ONE (13:00)
[2019-11-24] MEDS: SODIUM BICARBONATE 8.4% 100 MEQ in D5W 1,000 ML IV SCH (13:01)
[2019-11-24] MEDS ORDERED: ALBUMIN 25% IV ONE (16:16)
--- NOTE | 2019-11-24 17:47 | PROGRESS NOTE ---
DATE: 11/24/2019 SUBJECTIVE: I have seen and examined Ms. Galindo today. Ms. Galindo refers to be doing well. I understand last night she had some shortness of breath. She was put back on supplemental oxygen. OBJECTIVE: Blood pressure is 157/76, pulse of 87, respirations 21, temperature is 98.4 degrees. Patient is saturating 100% on 2 L.General: Ms. Galindo is a 54-year-old female. She is in bed no distress. Mucosa is pink and moist. Anicteric. Acyanotic. Neck: Supple. Chest: Good air entry bilateral. There are some crackles in the posterior lung coleman. Cardiovascular: Regular rate and rhythm. No murmurs, no rubs, no gallops. Abdomen: Soft, nontender. Bowel sounds present. Extremities: About 1+ pedal edema. There is also edema on the lateral aspect of the abdominal wall and the hips. FUGITIVE DETECTIVE: Patient is awake, alert, and oriented. There is a right femoral central line in place. LABORATORY DATA: WBC is 4.04, hemoglobin is 8.8, platelet count of 105,000. Chemistry is also reviewed. Sodium is 142, potassium is 4.4, chloride is 111, bicarb is 15, creatinine is 7.1, BUN is 65. The patient's ceruloplasmin is within normal range. Anti smooth muscle is negative. Hepatitis panel is all negative. Antiglomerular membrane serology is negative. ANCA and serology is negative. A chest x-ray this morning shows interstitial pulmonary edema. Patient I's and O's urine output was 1360. Patient has positive balance of 14,420. ASSESSMENT: 1. Acute kidney injury secondary to acute tubular necrosis from rhabdomyolysis. The patient continues to have adequate urine output. Creatinine is trending down. Nephrology is on board. 2. Rhabdomyolysis associated with high anion gap metabolic acidosis. The patient continues to be acidotic, but no gap anymore. She is slightly hyperchloremic, so I am going to discontinue the saline and start her on bicarb drip. 3. Diabetes mellitus. 4. Fluid overload. Ms. Galindo is edematous, has is currently positive balance of 14,420. She is having some mild congestion in the lungs per x-ray. I have cut back on her IV fluids. We will wait on Nephrology for further recommendations. I think Ms Galindo will need Lasix in the coming days if she continues to be edematous. 5. Elevated liver enzymes, most likely from rhabdomyolysis. 6. Hypoalbuminemia. We will start the patient on albumin supplements which will also possibly help with the fluid management. 7. Normocytic anemia. We will continue trending the H H. cc: Calderon Sanchez MD
[2019-11-24] MEDS: DESYREL PO SCH (20:34)
--- NOTE | 2019-11-24 21:49 | PROVIDER PROGRESS NOTE ---
Progress Note Subjective: patient complains of shortness of breath and cough that started since midnight. No other complaints noted. Objective: temperature 98.4, pulse 87, respirations 21, blood pressure 157/76, O2 sat 100% on 2 L nasal cannula. General: white female lying in bed in no obvious distress. HEENT: normocephalic, atraumatic, pupils equal and reactive, conjunctiva are pink, mucous membranes moist. Skin: warm, flush Neck: supple, 6cm JVD appreciated. Cardiovascular: regular rate and rhythm. Soft systolic murmur. No gallop. Respiratory: occasional wheezing anteriorly Abdomen: soft, nontender, nondistended. Bowel sounds present. : non inspected. Pearson in place. Extremities: no clubbing or cyanosis. 1+ edema to BUE and BLE. Neurological: alert and oriented to person, place, and time. Labs: ABC 4.04, hemoglobin 8.0, hematocrit 24.1, platelet count 105, sodium 142, potassium 4.2, chloride 111, carbon dioxide 15, BUN 65, creatinine 7.1, intake 4680, output 1740. Impression: Acute kidney injury related rhabdomyolysis causing acute tubular necrosis. BUN and Creatinine improved. Continue to current plan. Blood pressure. Varies. Observe. Fluid volume. Expanded. We will cut rate of sodium bicarbonate drip and give one dose 200mg IV lasix. Anemia. Low, but stable. Does not meet transfusion criteria. Electrolytes. Stable, Metabolic acidosis. Related to renal failure. Improving. Nutrition. Adequate. Medication review. Sodium bicarbonate drip started. Rhabdomyolysis. No improvement. Follow.
[2019-11-25] MEDS: SODIUM BICARBONATE 8.4% 100 MEQ in D5W 1,000 ML IV SCH (03:41)
[2019-11-25] MEDS: HUMALOG SUBQ SCH ×4 (06:49→20:24)
[2019-11-25 07:03] LABS: HEMATOCRIT 25.3 % (37.0-47.0); HEMOGLOBIN 8.5 g/dL (12.0-16.0); MCH 31.4 PG (27-31); MCHC 33.6 g/dL (33-37); MCV 93.4 FL (81-99); MPV 11.1 FL (7.4-10.4); RBC 2.71 XMIL (4.2-5.4); RDW 13.3 % (11.5-14.5); WBC 4.07 X1000 (4.8-10.8)
[2019-11-25 07:08] LABS: ALBUMIN 2.9 g/dL (3.5-5.0); CREATININE 6.5 mg/dL (0.5-0.9); PHOSPHORUS 4.1 mg/dL (2.7-4.5); POTASSIUM 3.8 mmol/L (3.5-5.1)
[2019-11-25] MEDS: ASPIRIN EC PO SCH (08:30)
[2019-11-25] MEDS: PAXIL PO SCH (08:30)
[2019-11-25] MEDS: PROTONIX PO SCH ×2 (08:31→20:24)
[2019-11-25] MEDS: MIRALAX PO SCH (08:31)
[2019-11-25] MEDS: ALBUMIN 25% IV SCH (08:31)
--- NOTE | 2019-11-25 10:46 | PROGRESS NOTE ---
DATE: 11/25/2019 SUBJECTIVE: I have seen and examined Ms. Galindo today. No family member was at the bedside at the time of the encounter. Ms. Galindo refers to be feeling a lot better. Denies any more shortness of breath. OBJECTIVE: Vital Signs: Blood pressure is 153/96, pulse of 78, respirations are 16, temperature is 97.9 degrees. General Examination: Ms. Galindo is a 54-year-old, female. She is in bed. No distress. HEENT: Mucosa is pink and moist. Anicteric. Acyanotic. Neck: Supple. Positive JVD. Chest: Air entry is bilaterally reduced. A few crackles posteriorly. Cardiovascular: Regular rate and rhythm. No murmurs, no rubs, no gallops. GI: Abdomen is soft. Minimally distended but nontender. Bowel sounds present. Extremities: There is 1+ pedal edema. Some edema also in the lateral aspect of the abdominal wall. RESEARCH STAFF MEMBER: The patient is awake, alert, and oriented. There is no focal deficit. The patient has a Pearson catheter in place. There is a right Vas-Cath in the femoral vein. Is and Os: Urine output was 4080. The patient is still positive balance of 13,315 over the course of the hospital stay. She is tolerating 50% of her meals. She has had a good bowel movement. No imaging studies for this morning. Laboratory Data: WBC is 4.07, hemoglobin is 8.5, platelet count of 110,000. Chemistry is also reviewed. Bicarb is improved to 21 and creatinine is down to 6.5. CK is also down to 11,244. Albumin is slightly improved to 2.9. ASSESSMENT: 1. Acute kidney injury secondary to acute tubular necrosis from rhabdomyolysis. 2. Fluid overload. The patient is over 13,000 positive balance. She got a massive dose of Lasix yesterday. She looks slightly better than yesterday. We will continue with further recommendations from nephrology. 3. Nontraumatic rhabdomyolysis associated with metabolic acidosis, improved with hydration and bicarb infusion. 4. Diabetes mellitus, controlled. 5. Elevated liver enzymes, most likely related to the rhabdomyolysis. Gastroenterology is on board. Multiple serologies have been done which have all come back unremarkable. cc: Calderon Sanchez MD
--- NOTE | 2019-11-25 11:11 | GASTROENTEROLOGY PROGRESS NOTE ---
DATE: 11/25/2019 SUBJECTIVE: Ms. Galindo is a 54-year-old, female resting in bed. The patient has denied any nausea, vomiting, or abdominal pain. Patient is able to tolerate her renal diet well. The patient has denied any bowel movements today. She did have one yesterday. OBJECTIVE: Vital Signs: Temperature 97.9 degrees, pulse 78, respirations 16, blood pressure 153/96, oxygen saturation 98% on 2 L nasal cannula. The patient's weight is 159 pounds. BMI is 34.6 kg/m2. General: She is alert, oriented x3, and in no acute distress. HEENT: Pale conjunctivae. No icterus. PERRL. Neck: Supple. Lungs: Clear to auscultation. Cardiovascular: Regular rate and rhythm. Abdomen: Soft, nontender, nondistended. Active bowel sounds heard in all 4 quadrants. Extremities: No clubbing, no cyanosis, no edema. Pedal pulses 2+ present bilaterally. Neurologic: She is alert and oriented x3. Laboratory Data: WBCs are 4.07, RBCs 2.71, hemoglobin is 8.5, hematocrit is 25.3, platelet count is 110,000. Sodium 139, potassium 3.8, chloride 104, carbon dioxide 21, anion gap 14, BUN 57, creatinine 6.5, glucose 114, calcium 7.0, phosphorus 4.1, albumin is 2.9. IMPRESSION AND PLAN: Elevated liver enzymes Rhabdomyolysis Anemia Renal failure Hypoalbuminemia Thrombocytopenia PLAN: Ms. Galindo is a 54-year-old, female with renal failure GI has been following her for elevated liver enzymes. We will continue patient with PPIs twice a day. She is on a bowel regimen, MiraLAX 17 g daily. The patient is receiving sodium bicarbonate at 50 mL per hour. She is also receiving albumin 50 g IV daily. The plan is to do an EGD and a colonoscopy as an outpatient. We will follow her up in 3 to 4 weeks after she is discharged from the hospital. This plan was discussed with Dr. Nguyen. Please call us for any further questions or concerns. Dictated by LILIANA Avilez for Alec Nguyen MD cc: Alec Nguyen MD I have seen and examined the patient myself and I agree with the above plan of care. Please call us with any further questions or concerns. MTDD
--- NOTE | 2019-11-25 13:54 | PROVIDER PROGRESS NOTE ---
Progress Note Subjective: she voices feeling better today she denies any shortness of breath. No other complaints noted. Objective: temperature 97.9, pulse 78, respirations 16, blood pressure 124/72, 02 sat 99% on 2 L nasal cannula. General: white female lying in bed in no obvious distress. HEENT: normocephalic, atraumatic, pupils equal and reactive, conjunctiva are pink, mucous membranes moist. Skin: warm, flush Neck: supple, 6cm JVD appreciated. Cardiovascular: s1S2, regular rate and rhythm. No murmur or gallop. Respiratory: clear lung sounds anteriorly Abdomen: soft, nontender, nondistended. Bowel sounds present. : non inspected. Pearson in place. Extremities: no clubbing or cyanosis.2+ edema to BUE and BLE. Neurological: alert and oriented to person, place, and time. Labs: Wbc 4.07, hemoglobin 8.5, hematocrit 25.3, platelet count 110, sodium 139, potassium 3.8, chloride 104, carbon dioxide 21, BUN 57, creatinine 6.5, calcium 7.0, albumin 2.9, intake 2975, output 4080. Impression: Acute kidney injury related rhabdomyolysis causing acute tubular necrosis. BUN and Creatinine improved. Continue to current plan. Blood pressure.In target. Fluid volume. Expanded. Stop sodium bicarbonate. Anemia. Low, but stable. Does not meet transfusion criteria. Electrolytes. Stable. Corrected calcium 8.1. Metabolic acidosis. Related to renal failure. Resolved. Nutrition. Adequate. Ambulation. Order PT Medication review. Stop Sodium Bicarbonate.
[2019-11-25] MEDS: DESYREL PO SCH (20:24)
[2019-11-26 05:38] LABS: HEMATOCRIT 24.1 % (37.0-47.0); HEMOGLOBIN 7.9 g/dL (12.0-16.0); MCH 30.4 PG (27-31); MCHC 32.8 g/dL (33-37); MCV 92.7 FL (81-99); MPV 10.8 FL (7.4-10.4); RBC 2.6 XMIL (4.2-5.4); RDW 13.1 % (11.5-14.5); WBC 3.34 X1000 (4.8-10.8)
[2019-11-26 06:17] LABS: ALBUMIN 3.1 g/dL (3.5-5.0); CALCIUM 7.5 mg/dL (8.8-10.2); CREATININE 6.3 mg/dL (0.5-0.9); PHOSPHORUS 4.1 mg/dL (2.7-4.5); POTASSIUM 3.8 mmol/L (3.5-5.1)
[2019-11-26] MEDS: HUMALOG SUBQ SCH ×4 (06:24→20:22)
[2019-11-26] MEDS: PROTONIX PO SCH ×2 (08:26→20:22)
[2019-11-26] MEDS: PAXIL PO SCH (08:26)
[2019-11-26] MEDS: ASPIRIN EC PO SCH (08:26)
[2019-11-26] MEDS: MIRALAX PO SCH (08:26)
[2019-11-26] MEDS: ALBUMIN 25% IV SCH (08:43)
--- NOTE | 2019-11-26 13:12 | PROGRESS NOTE ---
DATE: 11/26/2019 SUBJECTIVE: I have seen and examined Ms. Galindo today. Ms. Galindo refers to be doing well. No new complaints. She has also been evaluated this morning by Nephrology. OBJECTIVE: Vital signs: Blood pressure is 154/101, pulse is 83, respiration is 30, temperature is 98.4 degrees. General exam: Ms. Galindo is a 54-year-old female. She is in bed in no distress. HEENT: Mucosa is pink and moist. Anicteric. Acyanotic. Neck: Supple. I did not see any JVD this morning. Chest: Good air entry bilaterally. No crepitations. Cardiovascular: Regular rate and rhythm. GI: Abdomen is soft. There is there is some edema in the lateral aspect of the abdominal wall. Extremities: 1+ pedal edema. There is also edema on the upper thighs. SPACE SCHEDULER: Patient is awake, alert. No focal deficit. There is a Vas-Cath in the right femoral vein. LABORATORY DATA: WBC is 3.34, hemoglobin is 7.9, platelet count 124. Chemistry is also reviewed. Creatinine is down to 6.3. BUN is 52, anion gap of 15 with a bicarbonate of 22. X-RAY DATA: No imaging studies today. CURRENT MEDICATIONS: Have all been reviewed. No changes. ASSESSMENT: 1. Acute kidney injury secondary to acute tubular necrosis. 2. Nontraumatic rhabdomyolysis with metabolic acidosis, improving. 3. Fluid overload. The patient continues to be positive balance of 11,000. She is making adequate urine. We are going to continue to monitor. 4. Diabetes mellitus controlled on an insulin regimen. 5. Transaminitis probably related to rhabdomyolysis. However, underlying fatty liver, steatohepatitis cannot be entirely ruled out. The patient had an ultrasound of the abdomen which initially did not really make any mention of abnormality in the liver. cc: Calderon Sanchez MD
--- NOTE | 2019-11-26 15:15 | NEPHROLOGY PROGRESS NOTE ---
DATE: 11/26/2019 SUBJECTIVE: She is awake and alert. She has not gotten out of bed much. OBJECTIVE: Vital Signs: Blood pressure 117/64, heart rate 65, respiration 18, afebrile. Intake 1.2 L; output 3.5 L. General: No acute distress. Skin: Warm and dry. Neck: Neck veins are not distended. Heart: Regular. No gallops. Lungs: Equal. No crackles. Extremities: 1+ edema. No clubbing or cyanosis. IMPRESSION: 1. Acute tubular necrosis secondary to rhabdomyolysis. Progressive, but slow recovery. 2. Electrolytes, acid base in target. Still mildly volume expanded. No new intervention required today. We will recheck her CK in the morning. cc: Will Narvaez MD
[2019-11-26] MEDS: DESYREL PO SCH (20:22)
[2019-11-27] MEDS: HUMALOG SUBQ SCH ×4 (06:34→20:22)
[2019-11-27] MEDS: ALBUMIN 25% IV SCH (08:20)
[2019-11-27] MEDS: ASPIRIN EC PO SCH (08:21)
[2019-11-27] MEDS: PROTONIX PO SCH ×2 (08:21→20:21)
[2019-11-27] MEDS: PAXIL PO SCH (08:21)
[2019-11-27] MEDS: MIRALAX PO SCH (08:21)
[2019-11-27 09:54] LABS: ALBUMIN 4.4 g/dL (3.5-5.0); CALCIUM 8.1 mg/dL (8.8-10.2); CREATININE 5.5 mg/dL (0.5-0.9); PHOSPHORUS 2.7 mg/dL (2.7-4.5); POTASSIUM 3.2 mmol/L (3.5-5.1)
--- NOTE | 2019-11-27 10:33 | PROGRESS NOTE ---
DATE: 11/27/2019 SUBJECTIVE: I have seen and examined Ms. Galindo today, and Ms. Galindo refers to be doing well. Denies any new complaints. OBJECTIVE: Vital signs: Blood pressure is 121/88, pulse is 69, respiration is 22, temperature is 98.3 degrees. General exam: Ms. Galindo is a 54-year-old female. She is in bed in no distress. HEENT: Mucosa is pink and moist. Anicteric. Acyanotic. Neck: Supple. Chest: Good air entry bilaterally. A few crackles posteriorly. No JVD. Cardiovascular: Regular rate and rhythm. There are no murmurs, no rubs, no gallops. GI/Abdomen: Soft. Some edema in the lateral aspect of the abdominal wall. Bowel sounds present. There is no hepatosplenomegaly. Extremities: 1+ pedal edema. There is also edema in the upper thighs. BAG MACHINE SET UP OPERATOR: Patient is awake, alert, oriented. There is no focal deficit. There is a Vas-Cath in the right femoral vein. LABORATORY DATA: No laboratory data ready for this morning. Her glucose was 104. CURRENT MEDICATIONS: Have all been reviewed. No changes. ASSESSMENT: 1. Acute kidney injury secondary to acute tubular necrosis from rhabdomyolysis. 2. Nontraumatic rhabdomyolysis with metabolic acidosis on admission, improved. 3. Fluid overload. The patient continues to be positive balance. She is making adequate urine. We will continue to monitor. 4. Diabetes mellitus controlled on insulin regimen. 5. Transaminitis presumably related to rhabdomyolysis. However, underlying fatty liver, steatohepatitis cannot be entirely ruled out. Gastroenterology is on board. cc: Calderon Sanchez MD MTDD
[2019-11-27] MEDS: DESYREL PO SCH (20:21)
[2019-11-28] MEDS: ZOFRAN IV PRN (06:11)
[2019-11-28] MEDS: HUMALOG SUBQ SCH ×4 (06:19→21:22)
[2019-11-28 07:58] LABS: HEMATOCRIT 26.3 % (37.0-47.0); HEMOGLOBIN 8.4 g/dL (12.0-16.0); MCH 30.9 PG (27-31); MCHC 31.9 g/dL (33-37); MCV 96.7 FL (81-99); MPV 10.8 FL (7.4-10.4); RBC 2.72 XMIL (4.2-5.4); RDW 14.3 % (11.5-14.5); WBC 4.48 X1000 (4.8-10.8)
[2019-11-28] MEDS: ASPIRIN EC PO SCH (08:23)
[2019-11-28] MEDS: MIRALAX PO SCH (08:23)
[2019-11-28] MEDS: PAXIL PO SCH (08:24)
[2019-11-28] MEDS: PROTONIX PO SCH ×2 (08:24→20:41)
[2019-11-28 08:26] LABS: ALBUMIN 4.2 g/dL (3.5-5.0); CALCIUM 8.1 mg/dL (8.8-10.2); PHOSPHORUS 2.8 mg/dL (2.7-4.5); POTASSIUM 3.6 mmol/L (3.5-5.1)
--- NOTE | 2019-11-28 11:19 | PROGRESS NOTE ---
DATE: 11/28/2019 SUBJECTIVE: I have seen and examined Ms. Galindo today. Ms. Galindo refers to be doing a whole lot better. No new complaints. OBJECTIVE: Vital Signs: Blood pressure is 153/72, pulse of 83, respirations are 16, temperature is 98.2 degrees, the patient is saturating 93% on room air. General Examination: Ms. Galindo is a 54-year-old, female. She is in bed. No distress. HEENT: Mucosa is pink and moist. Anicteric. Acyanotic. Neck: Supple. No JVD. Chest: Air entry is bilaterally reduced, more so to the posterior bibasilar lung coleman. There are a few crackles posteriorly. Cardiovascular: Regular rate and rhythm. No murmurs, no rubs, no gallops. GI: Abdomen is soft. There is edema on the lateral aspect of the abdominal wall but it looks a lot better. Bowel sounds present. No hepatosplenomegaly. Extremities: There is 1+ pedal edema. REGISTERED PUBLIC HEALTH NURSE: The patient is awake, alert, oriented. There is no focal deficit. Laboratory Data: WBC is 4.48, hemoglobin is 8.4, platelet count of 158,000. Chemistry is also reviewed. Patient is slightly acidotic with a bicarb of 19, gap is 18, BUN is down to 50, and creatinine is down to 5.0. Creatine kinase is also down to 2705. Is and Os: Urine output was 2600. She is currently positive balance of 7675. The patient's current medications have all been reviewed. No changes. ASSESSMENT: 1. Acute kidney injury secondary to acute tubular necrosis from rhabdomyolysis. The patient continues to make adequate urine. Creatinine is trending down. 2. Nontraumatic rhabdomyolysis with metabolic acidosis on admission, improved. CK level continues to be trending down. 3. Fluid overload, noted. 4. Diabetes mellitus. The patient is on insulin regimen. Glucose is controlled. 5. Transaminitis secondary to rhabdomyolysis. We will check on the liver function tests for tomorrow. PLAN: In general, I think Ms. Galindo is doing fairly stable. No new complaints. Her BUN and creatinine continue to be trending down, as well as her CK. We will follow up with further recommendations from nephrology. cc: Calderon Sanchez MD
[2019-11-28] MEDS: TYLENOL PO PRN (18:09)
[2019-11-28] MEDS: DESYREL PO SCH (20:41)
[2019-11-28] MEDS: HEPARIN SUBQ SCH (20:41)
[2019-11-29] MEDS: HUMALOG SUBQ SCH ×4 (06:03→21:12)
[2019-11-29] MEDS ORDERED: NORVASC PO ONE (09:44)
[2019-11-29] MEDS: MIRALAX PO SCH (09:52)
[2019-11-29] MEDS: HEPARIN SUBQ SCH ×2 (09:52→21:09)
[2019-11-29] MEDS: ASPIRIN EC PO SCH (09:52)
[2019-11-29] MEDS: PROTONIX PO SCH (09:52)
[2019-11-29] MEDS: PAXIL PO SCH (09:52)
[2019-11-29 10:01] LABS: ALBUMIN 3.6 g/dL (3.5-5.0); CALCIUM 8.4 mg/dL (8.8-10.2); CREATININE 4.5 mg/dL (0.5-0.9); PHOSPHORUS 2.8 mg/dL (2.7-4.5); POTASSIUM 3.5 mmol/L (3.5-5.1)
--- NOTE | 2019-11-29 11:05 | NEPHROLOGY PROGRESS NOTE ---
DATE: 11/29/2019 SUBJECTIVE: The patient is sitting up in bed eating breakfast. She has no complaints today. She states she "feels better." OBJECTIVE: Vital Signs: Temperature 97.9 degrees, pulse 84, respiratory rate 18, blood pressure 174/78. Intake 10 mL and output 2.3 mL via Pearson catheter. General: This is a middle-aged female sitting up in bed, awake and alert, no acute distress. HEENT: Normocephalic, atraumatic. Oral mucosa is moist. Neck: Supple without JVD. Cardiovascular: Regular rate and rhythm. No murmur or gallop noted. Pulmonary: Equal excursion. Clear bilaterally. Abdomen: Obese. Positive bowel sounds. Genitourinary: Pearson catheter. Extremities: There is 1+ lower extremity edema. Integumentary: Skin is warm and dry. Neurologic: Nonfocal. LABORATORY DATA: Her labs from November 28, sodium 141, potassium 3.6, CO2 of 19, creatinine 5 (5.5). Her CK was 2705 (3545). ASSESSMENT AND PLAN: 1. Acute tubular necrosis secondary to rhabdomyolysis. Continues with improvement. No changes to current treatment plan. Urine output has been excellent. Labs are better. Observe. 2. Electrolytes, acid-base balance. These have been acceptable. 3. Hypertension. Her home medications, she normally takes Prinivil and this has been held. She has no allergies. We will add some amlodipine in the interim to assist with her hypertension control. Dictated by LILIANA Mendoza for Will Narvaez MD Face to face encounter, data reviewed, discussed with Evelina Tamez on 11/29/19. I agree with the above assessment and plan of care. cc: Will Narvaez MD [facility]
--- NOTE | 2019-11-29 12:58 | PROGRESS NOTE ---
DATE: 11/29/2019 SUBJECTIVE: Ms. Galindo is doing well. She is a 54-year-old female who was admitted for electrolyte abnormalities. She developed ATN secondary to rhabdomyolysis. Today she is feeling fine. She does not have any complaints. She was able to eat her breakfast and lunch, but is yet to have a bowel movement OBJECTIVE: Vital signs: Blood pressure is 158/86, pulse rate 84, respiratory rate 22, temperature is 97.7 orally. Oxygen saturation is 92% on room air. BMI is 35.1. I/Os 2300mL out via koenig, with 118mL postive balance PE General: well appearing, friendly, up in bed, with no distress HEENT: Mucosa moist, few silver molars Cardio: S1, S2 present no mgr Lungs: CTAB Abdomen: soft, non distended, bowel sounds present, palpable stool in descending colon. Extremity: Palpable stool in descending colon. Extremity: pedal pulse 2+ bilaterally, 1+ pedal edema. BALLPOINT PEN CARTRIDGE TESTER: Awake, alert, oriented to place but not to time or date. Patient seems to have baseline mild cognitive impairment. Labs: No new CBC, Na 144, K 3.5, Cl 107, Bicarb 21, BUN 44, Creatinine 4.5 glucose 188, calcium 8.4 Creatinine Kinase 1416, albumin 3.6 phosphorous 2.8 Assessment 57 yo female status post rhabdomyolysis leading to ATN 1) ROBBIN due to acute tubular necrosis from rhabdomyolysis, creatinine trending down 2) hyperglycemia 3) insulin dependent Diabetes Mellitus 4) morbib obesity 5) mild constipation 6) baseline cognitive impairment Plan 1) repeat creatinine 2) continue insulin regimen 3) Give bowel regimen here and continue at home 4) follow up with pcp for uncontrolled blood sugar 5. Discharge when nephrology is comfortable with her numbers Dictated by Deb Norris, Medical Student for Calderon Sanchez MD This chart was documented by, Deb Norris, Medical Student and accurately reflects the services performed, treatment plan and medical decisions as attested by the providers signature Calderon Sanchez MD. cc: Calderon Sanchez MD [facility]
--- NOTE | 2019-11-29 14:54 | GASTROENTEROLOGY PROGRESS NOTE ---
DATE: 11/29/2019 ATTENDING PHYSICIAN: Dr. Sanchez. PRIMARY CARE DOCTOR: Dr. Rozina Mirza. SUBJECTIVE: Patient resting in bed. She is feeling better. She denied any nausea or vomiting. She has poor oral intake. She had soft brown stool. The last bowel movement was yesterday. She denies any fevers, rigors, or chills. OBJECTIVE: Vital Signs: Temperature 97.7 degrees, pulse rate of 84, respiratory rate 20, blood pressure 152/86, satting 92% on room air. Body weight of 162 pounds 3 ounces. BMI of 35.1 kg/m2. General: The patient is moderately malnourished, lying in bed in no acute distress. HEENT: Pale conjunctivae. No icterus. Pupils equal, reactive to light. Neck: Supple. Abdomen: Obese, soft, nontender, nondistended. No guarding or rebound. Extremities: No cyanosis or clubbing. Neurologic: Neuro schmidt, she is alert, awake, oriented x3. LABS: Hemoglobin and hematocrit is 8.4 and 26.3, white count of 4.4, platelet count of 158. Sodium 141, potassium 3.5, chloride 107, bicarbonate of 21, anion gap 16. BUN of 44, creatinine 4.5, glucose of 188, calcium is 8.4, phosphorus 2.8. Creatine kinase is 1416, albumin 3.6. Hepatitis panel is nonreactive. AUGUSTINE is negative. Antimitochondrial antibody is less than 0.1, anti-smooth muscle antibody is negative. ANCA is negative. IMPRESSION AND PLAN: 1. Elevated liver enzymes. 2. Rhabdomyolysis. 3. Anemia. 4. Renal failure secondary to rhabdomyolysis. 5. Thrombocytopenia, improved. 6. Hypoalbuminemia, improved. 7. Obesity. Body mass index of 35.1. 8. Constipation, improved. RECOMMENDATION: 1. The patient's chronic liver disease workup has been negative. Liver enzymes likely secondary to rhabdomyolysis from muscle injury. We will continue with conservative management. She is on PPIs for GI prophylaxis. She has no evidence of any overt GI bleeding. She is on bowel regimen MiraLAX once daily. She will follow up in the clinic in 3 to 4 weeks of discharge. At that time, we will plan to do EGD and colonoscopy for workup of anemia. Thrombocytopenia has improved. She has mild leukopenia which is being observed by the primary care team. 2. Calcium is improving as well. Her creatine kinase is improving, and the levels are decreasing in the blood. 3. We will sign off at this time. The above plan was discussed with the patient and all questions were answered. Please call us with any further questions. cc: MD Calderon Jackson MD Bernice Swain, MD
[2019-11-29] MEDS: TYLENOL PO PRN (18:25)
[2019-11-29] MEDS: DESYREL PO SCH (21:09)
[2019-11-29] MEDS: ICAR-C PO SCH (21:09)
[2019-11-30] MEDS: HUMALOG SUBQ SCH ×2 (06:00→10:51)
[2019-11-30] MEDS ORDERED: PROTONIX PO SCH (07:00)
[2019-11-30] MEDS: PAXIL PO SCH (08:38)
[2019-11-30] MEDS: MIRALAX PO SCH (08:38)
[2019-11-30] MEDS: ICAR-C PO SCH (08:38)
[2019-11-30] MEDS: ASPIRIN EC PO SCH (08:39)
[2019-11-30] MEDS: HEPARIN SUBQ SCH (08:39)
[2019-11-30 08:46] LABS: CALCIUM 8.6 mg/dL (8.8-10.2); CREATININE 4.1 mg/dL (0.5-0.9); PHOSPHORUS 3.4 mg/dL (2.7-4.5); POTASSIUM 3.6 mmol/L (3.5-5.1)
[2019-11-30] MEDS ORDERED: NORVASC PO SCH ×2 (09:00)
[2019-11-30 11:29] VITALS: BP 154/92
--- NOTE | 2019-11-30 14:37 | PROVIDER PROGRESS NOTE ---
Progress Note Subjective: she voices feeling better today she denies any shortness of breath. No other complaints noted. Objective: temperature 97.8, pulse 80, respiration 16, blood pressure 167/73, 02 sat 94% on room air. General: white female lying in bed in no obvious distress. HEENT: normocephalic, atraumatic, pupils equal and reactive, conjunctiva are pink, mucous membranes moist. Skin: warm and dry. Red raised rash-like area noted to chest Neck: supple, 6cm JVD appreciated. Cardiovascular: s1S2, regular rate and rhythm. No murmur or gallop. Respiratory: clear lung sounds anteriorly Abdomen: soft, nontender, nondistended. Bowel sounds present. : non inspected. Right groin central access noted. Extremities: no clubbing or cyanosis. 2+ edema to BLE. Neurological: alert and oriented to person, place, and time. Labs: sodium 145, potassium 3.6, chloride 105, carbon dioxide 20, anion gap 20, BUN 42, creatinine 4.1. Impression: Acute kidney injury related rhabdomyolysis causing acute tubular necrosis. BUN and Creatinine improved. Continue to current plan. Blood pressure. Above target. Amlodipine increased to BID. Fluid volume. Slightly Expanded. Electrolytes. Stable. Metabolic acidosis. Related to renal failure. Nutrition. Adequate. Ambulation. PT in place. Medication review. Icar started.
--- NOTE | 2019-12-01 11:20 | DISCHARGE SUMMARY ---
ADMISSION DATE: 11/19/2019 DISCHARGE DATE: 11/30/2019 DISCHARGE DIAGNOSES: 1. Acute kidney injury secondary to acute tubular necrosis from rhabdomyolysis, improved. 2. Fluid overload, improved. 3. Nontraumatic rhabdomyolysis associated with metabolic acidosis, improved. 4. Diabetes mellitus type 2, controlled. 5. Elevated liver enzymes most likely related to rhabdomyolysis, improved. CONSULTATIONS: 1. Dr. Will Narvaez from Nephrology. 2. Dr. Alec Nguyen from GI. PROCEDURES: 1. CT of abdomen and pelvis without contrast showed renal failure which was not present in September 2019. 2. Ultrasound-guided right common femoral vein Trialysis catheter placement performed by Dr. Parminder Young. 3. Echocardiogram Doppler showed normal left ventricular dimension demonstrated with ejection fraction of greater than 70%. No pericardial effusion. The aortic valve is trileaflet. HOSPITAL COURSE: This is a 54-year-old female who lives by herself in [place], who has past medical history of anxiety and depression. The patient has been sent by her primary care doctor because her creatinine has been very high and she was not feeling okay. She was admitted to the emergency department. She had a CT of the abdomen which shows basically acute renal failure. Nephrology has been consulted. They were initially planning to do dialysis but they decide to monitor renal function closely and her renal function started getting better. She was not uremic so upon discharge, this patient is going to be seen in the office. The Vas-Cath has been removed. Also for diabetes mellitus type 2, we have used sliding scale insulin and we were monitoring also transaminase elevation. For hypertension, we continued with current medications, so the patient is going to be discharged in stable condition. DISCHARGE PHYSICAL EXAMINATION: Vital signs: Temperature 98.3 degrees, heart rate 83, respiratory rate 16, blood pressure 154/92, O2 saturation 96% on room air. General: This is a 54-year-old female, lying in bed, in no acute distress. Cardiovascular: S1, S2 heard. No murmurs, gallops, or rubs. Regular rate and rhythm. Respiratory: Clear bilaterally to auscultation. No work of breathing or using accessory muscles. Abdomen: Soft, nontender to palpation. Bowel sounds present. No organomegaly. Extremities: No clubbing, cyanosis, or edema. Peripheral pulses present in both legs. Neurological: The patient is alert and oriented x3. Moves 4 extremities. FOLLOWUP: 1. Follow up with Dr. Will Narvaez on 12/14/2019 at 9:30. 2. Follow up with primary care physician as already scheduled. MEDICATIONS: 1. Amlodipine 5 mg 1 tablet p.o. b.i.d. 2. Icar-C 1 tablet p.o. twice daily. 3. Januvia 50 mg 1 tablet p.o. daily. 4. Pantoprazole 40 mg 1 tablet p.o. daily. 5. Aspirin 81 mg 1 tablet p.o. daily. 6. Famotidine 20 mg 1 tablet p.o. daily. 7. Paroxetine 20 mg 1 tablet p.o. daily. 8. Rosuvastatin 40 mg 1 tablet p.o. at bedtime. 9. Trazodone 50 mg 1 tablet p.o. at bedtime. TIME SPENT: Discharging this patient was 38 minutes. cc: Carlos German MD
--- NOTE | 2019-12-04 16:12 | GASTROENTEROLOGY PROGRESS NOTE ---
DATE: 12/04/2019 SUBJECTIVE: The patient is feeling better. The nausea is better, able to keep some liquids down. OBJECTIVE: Vital Signs: Stable. Heart: Normal. Lungs: Normal. Abdomen: Tender in the right upper quadrant and diffusely tender but no rebound or rigidity. Extremities: Unremarkable. LAB DATA: Shows an increase in CK suggestive of rhabdomyolysis. IMPRESSION: 1. Acute elevation of liver enzymes, most likely secondary to rhabdomyolysis. 2. ATN secondary to rhabdomyolysis. 3. Hyperkalemia. 4. Diabetes mellitus. 5. Hypertension. 6. Possible sepsis. 7. Gastrointestinal prophylaxis. 8. Deep vein thrombosis prophylaxis. 9. We will continue to follow. Patient should improve. Renal nephrology is following. cc: Niki Forde MD
== END 2019-11-30 12:56 | disposition home or self-care (01) | DRG 683 ==
LOC: ED 11:01 → EDIPHOLD 17:24 → SUATTDRO 17:24 → ICU 11-20 00:19 → 3N 11-27 18:52
PROVIDERS: ATTEND Internal Medicine

== ENCOUNTER 2019-12-01 17:19 | Inpatient (IN) ==
[2019-12-01] MEDS ORDERED: DUONEB (A & A) INH ONE (17:58)
[2019-12-01] MEDS ORDERED: LASIX IV ONE (17:58)
[2019-12-01] MEDS ORDERED: NS 1,000 ML IV ONE (17:58)
[2019-12-01 18:10] LABS: ALLEN TEST YES; BE -5.1 mmoll (-3.0-3.0); BLOOD TYPE ARTERIAL; HCO3-(ACT) 20.9 mmoll (20.0-26.0); METHB 1.5 % (0.0-1.5); O2HB 94.7 % (95.0-99.0); PCO2(98.6) 47 mmHg (35-45); PO2(98.6) 85 mmHg (60-100); SAMPLE BLOOD; SAO2 97.6 % (95.0-100.0); THB 8.9 g/dL (11.5-17.4); pH(98.6) 7.27 (7.35-7.45)
[2019-12-01 18:11] LABS: MODALITY NRB
[2019-12-01] MEDS ORDERED: ZOSYN 3.375 GM in NS 50 ML IV ONE (18:27)
--- NOTE | 2019-12-01 18:27 | Diag Imaging Result Doc PS360 ---
EXAM: CHEST-1 VIEW 12/01/2019 HISTORY: sob TECHNIQUE: AP portable semiupright chest at 1811 COMMENT: There is increasing opacity in the parahilar regions and lung bases compared to the previous examination of 11/24/2019. IMPRESSION: Worsened pulmonary edema. Electronically signed by Joon Barth 12/01/2019 6:25 PM
[2019-12-01] MEDS ORDERED: MORPHINE IV ONE (18:48)
[2019-12-01] MEDS ORDERED: NITROGLYCERIN TOP ONE (18:48)
[2019-12-01] MEDS ORDERED: ZOFRAN IV ONE (18:48)
--- NOTE | 2019-12-01 18:49 | PROVIDER DOCUMENTATION ---
This chart was entered by Jennifer Cho Scribe, acting as scribe for Daniel Betancourt MD. HPI-Respiratory General - General Source: patient, family (mom) - History of Present Illness-Resp Quality of Pain: reports: tightness Severity in ED: reports: severe Onset/Duration: reports: 24 hours ago Timing: reports: still present, changing over time Current Respiratory Medication Therapy: Initiated see nurses note Modifying Factors: worse with: exertion, deep breath Associated Symptoms: reports: shortness of breath, short of breath Similar Symptoms Previously?: Yes Recently seen or treated by another doctor?: Yes (was seen in ED 11/19/2019 and admitted inpatient until 11/30/2019) <Daniel Betancourt - Last Filed: 12/01/19 18:45> <Alexa Ramirez - Last Filed: 12/01/19 20:22> - General Chief Complaint: Shortness of Breath Stated Complaint: SOB Time Seen by Provider: 12/01/19 17:47 Allergies/Adverse Reactions: Patient Allergies Allergy/AdvReac Type Severity Reaction Status Date / Time No Known Allergies Allergy Verified 11/19/19 11:42 Home Medications: Home Medication List Medication Instructions Recorded Confirmed Last Taken Type Aspirin [Aspirin EC] 81 mg PO DAILY 11/19/19 11/19/19 11/18/19 History Famotidine 20 mg PO DAILY 11/19/19 11/19/19 11/19/19 History Paroxetine HCl [Paxil] 20 mg PO DAILY 11/19/19 11/19/19 11/19/19 History Rosuvastatin Calcium 40 mg PO HS 11/19/19 11/19/19 11/18/19 History Trazodone [Desyrel] 50 mg PO HS 11/19/19 11/19/19 11/19/19 History Amlodipine [Norvasc] 5 mg PO BID #60 tab 11/30/19 Unknown Rx Iron Carbonyl/Ascorbic Acid 1 tab PO BID #120 tab 11/30/19 Unknown Rx [Icar-C] Pantoprazole [Protonix] 40 mg PO DAILY #60 tab 11/30/19 Unknown Rx Sitagliptin [Januvia] 50 mg PO DAILY #90 tab 11/30/19 Unknown Rx - History of Present Illness-Resp Nature of Presenting Problem: 54yof presents to ED cc SOB and all over edema. Pt was released from hospital yesterday after a 10 day stay for hyperkylemia and mom who is at bedside reports pt had a 24lb weight gain during that time. Pt reports pt she shared a room with had pneumonia. (Daniel Betancourt) Review of Systems - Adult - REVIEW OF SYSTEMS - ADULT Constitutional: reports: see HPI, fatique, weight gain (24lbs). denies: chills, fever Eyes: reports: no symptoms reported Ears, Nose, Mouth & Throat: reports: no symptoms reported Cardiovascular: reports: no symptoms reported Respiratory: reports: see HPI, dyspnea on exertion, shortness of breath, wheezing Gastrointestinal: reports: no symptoms reported Genitourinary: reports: no symptoms reported Musculoskeletal: reports: no symptoms reported Integumentary: reports: see HPI, other (whole body swelling) Neurological: reports: no symptoms reported Psychiatric: reports: no symptoms reported Endocrine: reports: no symptoms reported Hematologic/Lymphatic: reports: no symptoms reported Allergic/Immunologic: reports: no symptoms reported All Other Systems: Reviewed and Negative <Daniel Betancourt - Last Filed: 12/01/19 18:45> Past History - Adult - PAST MEDICAL HISTORY-ADULT Review of Records: reports: Old Records Reviewed, Nursing Assessment Review, Medications Reviewed, Social history reviewed & non-contributory. Major Childhood Illnesses: reports: denies history Cardiovascular: reports: HTN, hyperlipidemia Respiratory: reports: denies history Gastrointestinal: reports: denies history Obstetrical/Gynecological: reports: denies history Genitourinary: reports: denies history Musculoskeletal: reports: denies history Neurological: reports: denies history Psychiatric: reports: anxiety, depression Endocrine/Immune: reports: Diabetes Other Conditions: reports: denies history - PRIOR SURGERIES/PROCEDURES Surgical/Procedure History: reports: none - IMMUNIZATION STATUS Childhood Immunizations: See Nurse Assessment Flu Vaccine: See Nurse Assessment - FAMILY HISTORY Family History: reviewed, not pertinent <Daniel Betancourt - Last Filed: 12/01/19 18:45> Physical Exam-General - PHYSICAL EXAM-ADULT Initial Vital Signs Reviewed: Yes - CONSTITUTIONAL General Appearance: alert, moderate distress. negative: anxious, combative - EYES Eyes: PERRL/EOMI, pink conjunctivae. negative: photophobia - HEAD, EARS, NOSE, MOUTH & THROAT HENMT: normocephalic/atraumatic, moist mucous membranes. negative: angioedema - NECK Neck: supple - RESPIRATORY Respiratory: chest non-tender, respiratory distress, rhonchi, wheezing (expiratory), other (tachypneic). negative: normal breath sounds (diminished, bilateral), stridor - CARDIOVASCULAR Cardiovascular: normal peripheral pulses, tachycardia. negative: bradycardia - GASTROINTESTINAL (ABDOMEN) Abdominal Exam: normal bowel sounds, non tender, soft - MUSCULOSKELETAL Extremity: swelling (whole body 3+ edema). negative: deformity - SKIN Integumentary: normal color. negative: diaphoresis - PSYCHIATRIC Psych/Mental Status: normal mood/affect, oriented x 3. negative: anxious, disheveled <Daniel Betancourt - Last Filed: 12/01/19 18:45> - HEART Score HEART Score: History: Slightly Suspicious HEART Score: ECG: Non-Specific Repolarization Disturbance/LBBB/PM HEART Score: Age: 45-65 Years HEART Score: Risk Factors for Atherosclerotic Disease: 1 or 2 Risk Factors HEART Score: Troponin: > or = 3x Normal Limit Total HEART Score:: 5 <Alexa Ramirez - Last Filed: 12/01/19 20:22> Progress - REASSESSMENT Reassessment #1 Time Reassessed: 18:46 Status: improving (Given lasix, zosyn, morphine, duoneb and placed on bipap. Awaiting labs) - XRAY 1 XRAY Study: Chest Impression: Abnormal, See EMR Report ( Signed EXAM: CHEST-1 VIEW 12/01/2019 HISTORY: sob TECHNIQUE: AP portable semiupright chest at 1811 COMMENT: There is increasing opacity in the parahilar regions and lung bases compared to the previous examination of 11/24/2019. IMPRESSION: Worsened pulmonary edema. Electronically signed by Joon Barth 12/01/2019 6:25 PM 12/01/191824 Interpreting Physician: Joon Barth MD Dictated Date/Time: 12/01/191823 cc: Daniel Betancourt MD; Rozina Mirza MD) - CHANGE OF SHIFT REPORT (ED Provider) 1 Report Given and Care Transferred to:: James Time of Transfer: 19:00 Items Pending: Labs, Physician Consult/Arrival <Daniel Betancourt - Last Filed: 12/01/19 18:45> - PLAN OF CARE/RESULTS Result Diagrams: 12/01/19 18:04 12/01/19 18:04 - REASSESSMENT Reassessment #2 Time Reassessed: 19:40 Status: improving (Per pt SOB has improvrd. On asking pt says she had CP today but thinks it was from her panic attack.) - CONSULTS/PCP/HOSPITALIST Notification #1 *Consult/PCP/Hospitalist*: d/w Dr Dyer Time Discussed: 20:00 Consult Disposition: other (advised cardiology consult and inform him if cards recommends admission.) #2 Consult: d/w Dr Smiley Time Discussed: 20:08 Consult Disposition: Admit (recommended admission to hospitalist. said trop increase may be secondary to her rhabdo. Wants to wait on heparin.) #3 Consult: d/w Dr Dyer Time Discussed: 20:15 Consult Disposition: Admit <Alexa Ramirez - Last Filed: 12/01/19 20:22> - PLAN OF CARE/RESULTS Progress/Plan/Lab Results: Vital Signs - 8 hr 12/01/19 17:36 12/01/19 18:24 12/01/19 19:56 Temperature 98.8 F Pulse Rate 113 H 103 H 102 H Respiratory Rate 33 H 26 H 26 H Blood Pressure 144/88 141/101 O2 Sat by Pulse Oximetry 62 L 100 97 Laboratory Results - last 24 hr 12/01/19 12/01/19 12/01/19 17:57 18:04 18:04 WBC RBC Hgb Hct MCV MCH MCHC RDW Std Deviation Plt Count MPV Immature Gran % (Auto) Neut % (Auto) Lymph % (Auto) [place] % (Auto) Eos % (Auto) Baso % (Auto) Immature Gran # (Auto) Neut # (Auto) Lymph # (Auto) [place] # (Auto) Eos # (Auto) Baso # (Auto) Corrected WBC (Man) PT INR PTT (Actin FS) Specimen Type ARTERIAL Sample Site R RADIAL pH 7.27 L pCO2 47 H pO2 85 HCO3 20.9 Base Excess -5.1 L Oxyhemoglobin 94.7 L ABG O2 Sat (Calculated) 12.0 L ABG O2 Saturation 97.6 ABG Carboxyhemoglobin 1.60 ABG Methemoglobin 1.5 Tavo Test YES A-a O2 Difference 569.0 Total Hemoglobin 8.9 L Lactate 2.50 H Liter Flow 15.0 Blood Gas Modality NRB FiO2 % 100.0 Sodium 141 Potassium 3.8 Chloride 101 Carbon Dioxide 20 L Anion Gap 20 BUN 38 H Creatinine 3.2 H Estimated GFR/1.73 m2 15 BUN/Creatinine Ratio 12 Glucose 214 H D Calculated Osmolality 297 Calcium 8.2 L Phosphorus 5.6 H Magnesium 1.7 Total Bilirubin 0.70 AST 34 H ALT 76 H Alkaline Phosphatase 90 Creatine Kinase 864 H Creatine Kinase Index 2.3 CK-MB (CK-2) 19.81 H Troponin T High Sens [id number] Pept 67193 H Total Protein 7.1 Albumin 4.3 Globulin 2.8 Albumin/Globulin Ratio 1.5 Plasma Lactate Urine Source Urine Color Urine Turbidity Urine pH Ur Specific [place] Urine Protein Ur Glucose (Stick) Ur Ketones (Stick) Urine Blood Urine Nitrite Urine Bilirubin Urobilinogen Dipstick Urine Leukocytes Urine WBC (Auto) Urine RBC (Auto) U Epithel Cells (Auto) Urine Bacteria (Auto) 12/01/19 12/01/19 12/01/19 18:04 18:04 18:04 WBC Cancelled RBC Cancelled Hgb Cancelled Hct Cancelled MCV Cancelled MCH Cancelled MCHC Cancelled RDW Std Deviation Cancelled Plt Count Cancelled MPV Cancelled Immature Gran % (Auto) Cancelled Neut % (Auto) Cancelled Lymph % (Auto) Cancelled [place] % (Auto) Cancelled Eos % (Auto) Cancelled Baso % (Auto) Cancelled Immature Gran # (Auto) Cancelled Neut # (Auto) Cancelled Lymph # (Auto) Cancelled [place] # (Auto) Cancelled Eos # (Auto) Cancelled Baso # (Auto) Cancelled Corrected WBC (Man) Cancelled PT INR PTT (Actin FS) Specimen Type Sample Site pH pCO2 pO2 HCO3 Base Excess Oxyhemoglobin ABG O2 Sat (Calculated) ABG O2 Saturation ABG Carboxyhemoglobin ABG Methemoglobin Tavo Test A-a O2 Difference Total Hemoglobin Lactate Liter Flow Blood Gas Modality FiO2 % Sodium Potassium Chloride Carbon Dioxide Anion Gap BUN Creatinine Estimated GFR/1.73 m2 BUN/Creatinine Ratio Glucose Calculated Osmolality Calcium Phosphorus Magnesium Total Bilirubin AST ALT Alkaline Phosphatase Creatine Kinase Creatine Kinase Index CK-MB (CK-2) Troponin T High Sens 476 H* [id number]-Y-Qwielpjyufn Pept Total Protein Albumin Globulin Albumin/Globulin Ratio Plasma Lactate 2.5 H Urine Source Urine Color Urine Turbidity Urine pH Ur Specific [place] Urine Protein Ur Glucose (Stick) Ur Ketones (Stick) Urine Blood Urine Nitrite Urine Bilirubin Urobilinogen Dipstick Urine Leukocytes Urine WBC (Auto) Urine RBC (Auto) U Epithel Cells (Auto) Urine Bacteria (Auto) 12/01/19 12/01/19 18:04 18:55 WBC RBC Hgb Hct MCV MCH MCHC RDW Std Deviation Plt Count MPV Immature Gran % (Auto) Neut % (Auto) Lymph % (Auto) [place] % (Auto) Eos % (Auto) Baso % (Auto) Immature Gran # (Auto) Neut # (Auto) Lymph # (Auto) [place] # (Auto) Eos # (Auto) Baso # (Auto) Corrected WBC (Man) PT 13.6 INR 1.03 PTT (Actin FS) 19.9 L Specimen Type Sample Site pH pCO2 pO2 HCO3 Base Excess Oxyhemoglobin ABG O2 Sat (Calculated) ABG O2 Saturation ABG Carboxyhemoglobin ABG Methemoglobin Tavo Test A-a O2 Difference Total Hemoglobin Lactate Liter Flow Blood Gas Modality FiO2 % Sodium Potassium Chloride Carbon Dioxide Anion Gap BUN Creatinine Estimated GFR/1.73 m2 BUN/Creatinine Ratio Glucose Calculated Osmolality Calcium Phosphorus Magnesium Total Bilirubin AST ALT Alkaline Phosphatase Creatine Kinase Creatine Kinase Index CK-MB (CK-2) Troponin T High Sens Gke-J-Dzxcvoxckdg Pept Total Protein Albumin Globulin Albumin/Globulin Ratio Plasma Lactate Urine Source CATH Urine Color YELLOW Urine Turbidity CLEAR Urine pH 6.0 Ur Specific [place] 1.012 Urine Protein 100 A Ur Glucose (Stick) 300 A Ur Ketones (Stick) 10 A Urine Blood MODERATE A Urine Nitrite NEGATIVE Urine Bilirubin NEGATIVE Urobilinogen Dipstick NORMAL Urine Leukocytes NEGATIVE Urine WBC (Auto) <10 Urine RBC (Auto) <10 U Epithel Cells (Auto) <10 Urine Bacteria (Auto) NEGATIVE Orders Category Date Time Status Cardiac Monitoring NOW Care 12/01/19 17:41 Active Pearson Cath Insertion ORDERED Care 12/01/19 17:58 Active IV Insertion NOW Care 12/01/19 17:41 Completed NEWS Score >or=5:Order NEWS Bundle S.O. NOW Care 12/01/19 17:40 Active Notify Provider of NEWS Score NOW Care 12/01/19 17:41 Active Nursing- Obtain EKG once Care 12/01/19 17:59 Active CHEST-1 VIEW [RAD] Stat Exams 12/01/19 17:41 Completed ABG [RESP] Routine Lab 12/01/19 17:57 Completed BLOOD CULTURE [BLDCUL] Stat Lab 12/01/19 18:36 Results CK PROFILE [SP CHEM] Stat Lab 12/01/19 18:04 Completed COMPREHENSIVE METABOLIC PANEL [CHEM] Stat Lab 12/01/19 18:04 Completed LACTATE, PLASMA [CHEM] Lab 12/01/19 20:45 Uncollected LACTATE, PLASMA [CHEM] Lab 12/01/19 23:45 Uncollected LACTATE, PLASMA [CHEM] Q3H Lab 12/01/19 18:04 Completed MAGNESIUM [CHEM] Stat Lab 12/01/19 18:04 Completed PRO B-NATRIURETIC PEPTIDE Stat Lab 12/01/19 18:04 Completed PROTIME WITH INR [COAG] Stat Lab 12/01/19 18:04 Completed PTT [COAG] Stat Lab 12/01/19 18:04 Completed TROPONIN T HIGH SENSITIVITY Stat Lab 12/01/19 18:04 Completed URINALYSIS W/POSS RFLX CULT [URINALYSIS] Stat Lab 12/01/19 18:55 Completed phos [PHOSPHORUS] [CHEM] Stat Lab 12/01/19 18:04 Completed 0.9% Sodium Chloride Inj [Ns] 1,000 ml Med 12/01/19 17:58 Active IV 75 mls/hr Albuterol 2.5MG/Ipratrop 0.5MG [Duoneb (A & A)] Med 12/01/19 17:58 Discontinued 3 ml INH NOW ONE Furosemide [Lasix] Med 12/01/19 17:58 Discontinued 80 mg IV NOW ONE Morphine Med 12/01/19 18:48 Discontinued 2 mg IV NOW ONE Nitroglycerin Med 12/01/19 18:48 Discontinued 1 inch TOP NOW ONE Ondansetron [Zofran] Med 12/01/19 18:48 Discontinued 4 mg IV NOW ONE Piperacillin/Tazobactam [Zosyn] 3.375 gm Med 12/01/19 18:27 Discontinued 0.9% Sodium Chloride Inj [Ns] 50 ml IV NOW Aerosol Treatments Routine Oth 12/01/19 17:58 Completed Aerosol Treatments Stat Oth 12/01/19 17:58 Completed BIPAP Stat Oth 12/01/19 17:58 Active O2 Per Protocol Stat Oth 12/01/19 17:41 Completed EKG [EKG] Stat Ther 12/01/19 17:59 Ordered Departure - Departure Date of Disposition Decision: 12/01/19 Certified Medical Emergency: Emergent - Critical Care Note This patient required my direct & personal management of CC.: Yes Total Time (mins): 45 Critical Care Statement: This patient required my direct personal management to treat or rule out processes, the absence of which, could potentiallly result in sudden, clinically significant life or limb threatening deterioration. <Daniel Betancourt - Last Filed: 12/01/19 18:45> - Departure Time of Disposition Decision: 20:22 <Alexa Ramirez - Last Filed: 12/01/19 20:22> - Departure DIAGNOSIS: Flash pulmonary edema, Acute respiratory distress syndrome (ARDS), Renal failure, NSTEMI (non-ST elevated myocardial infarction) Disposition: ADMITTED INPATIENT 09 Condition: Stable Referrals and Follow-Ups: Rozina Mirza MD [Primary Care Provider] - Attestation - Physician/ MICHAEL Attestation Patient care was provided by Advanced Practice Provider:: No The physician spent face to face time with patient:: Yes Advanced Practice Provider documentation review:: Supervising physician onsite and consulted in the evaluation and care of this patient. The physician did have a face to face encounter with the patient. <Daniel Betancourt - Last Filed: 12/01/19 18:45> This chart was documented by the indicated scribe, (Jennifer Cho Scribe) and accurately reflects the services I performed and decisions made by me, Daniel Betancourt MD, as attested by the provider's signature.
[2019-12-01 19:10] LABS: ALB/GLOB RATIO 1.5; ALBUMIN 4.3 g/dL (3.5-5.0); CALCIUM 8.2 mg/dL (8.8-10.2); CREATININE 3.2 mg/dL (0.5-0.9); MAGNESIUM 1.7 mg/dL (1.5-2.7); PHOSPHORUS 5.6 mg/dL (2.7-4.5); POTASSIUM 3.8 mmol/L (3.5-5.1); TOTAL BILIRUBIN 0.7 mg/dL (0.20-1.00); TOTAL PROTEIN 7.1 g/dL (6.3-8.3)
[2019-12-01 19:11] LABS: INR 1.03; PROTIME 13.6 Seconds (11.0-16.0)
[2019-12-01 19:12] LABS: URINE SOURCE CATH
[2019-12-01 19:24] LABS: BILIRUBIN URINE NEGATIVE (NEGATIVE); BLOOD URINE MODERATE (NEGATIVE); COLOR YELLOW; GLUCOSE URINE 300 mg/dL (NEGATIVE); KETONE URINE 10 mg/dL (NEGATIVE); LEUKOCYTES URINE NEGATIVE (NEGATIVE); NITRITE URINE NEGATIVE (NEGATIVE); PROTEIN URINE 100 mg/dL (NEGATIVE); SP GRAVITY URINE 1.012; TURBIDITY URINE CLEAR (CLEAR); UROBILINOGEN URINE NORMAL (NORMAL)
[2019-12-01 19:25] LABS: UR EPITHELIAL CELLS <10 /HPF (<10); URINE BACTERIA NEGATIVE /HPF; URINE RBC <10 /HPF (<10); URINE WBC <10 /HPF (<10)
[2019-12-01 19:36] LABS: PTT 19.9 Seconds (22.3-41.8)
[2019-12-01 19:40] LABS: CK INDEX 2.3 (0.0-2.5); CK-MB 19.81 ng/mL (0.0-5.0)
[2019-12-01] MEDS ORDERED: ASPIRIN PO ONE (20:09)
--- NOTE | 2019-12-01 22:54 | HISTORY AND PHYSICAL ---
PRIMARY CARE PHYSICIAN: Dr. Mirza. CHIEF COMPLAINT: Shortness of breath. HISTORY OF PRESENTING ILLNESS: A 52-year-old female with a history of diabetes mellitus type 2, hypertension, hyperlipidemia and anxiety disorder who was just recently discharged from hospital after treatment for rhabdomyolysis and acute kidney injury. She states that she went home she developed more shortness of breath. She returned to the emergency department. She had imaging done which did show she had pulmonary edema. She was given diuresis with Lasix. However, she still continued to be short of breath. She was put on BiPAP and she had improvement. Due to her presenting symptoms, she will require admission for further management. The patient also had laboratories drawn, which did show that she had elevated troponin. Her case was discussed with Cardiology who also agreed with admission. At the time of my examination, the patient denied any headache, fever, chills, chest pain, hemoptysis, but complained of shortness of breath. PAST MEDICAL HISTORY: Includes diabetes mellitus type 2, hypertension, hyperlipidemia, anxiety disorder. PAST SURGICAL HISTORY: None. ALLERGIES: No known drug allergies. CURRENT MEDICATIONS: Include amlodipine 5 mg p.o. b.i.d., aspirin 81 mg p.o. daily, famotidine 20 mg p.o. daily, pantoprazole 40 mg p.o. daily, paroxetine 20 mg p.o. daily, lovastatin 40 mg p.o. at bedtime, Januvia 50 mg p.o. daily, trazodone 50 mg p.o. at bedtime. SOCIAL HISTORY: No history of smoking, alcohol or illicit drug use. FAMILY HISTORY: No history of coronary disease. REVIEW OF SYSTEMS: Fourteen point review of systems is as in HPI. Other systems negative physical. PHYSICAL EXAMINATION: GENERAL: Cooperative, friendly female. She is resting more comfortably, and she is currently on a BiPAP. VITALS: Vital signs temperature 98.8 degrees, pulse 113, respiration 33, blood pressure 144/88. HEENT: Atraumatic, normocephalic. Extraocular movements intact PERRLA. NECK: No masses. CHEST: Rales. CARDIOVASCULAR: Regular rate and rhythm. ABDOMEN: Soft. Positive bowel sounds. EXTREMITIES: +1 edema. NEUROLOGY: She is awake, alert, oriented x3. : No bladder distention. SKIN: Warm. LABORATORIES AND STUDIES: Sodium 141, potassium 3.8, chloride 101, CO2 is 20, BUN is 38, creatinine is 3.2, glucose 214. Troponin is 476. ProBNP is 32,742. Chest x-ray shows worsening pulmonary edema. ASSESSMENT: A 54-year-old female with a history of diabetes mellitus type 2, hypertension, hyperlipidemia, who had presented to emergency department with complaint of worsening shortness of breath after she went home from hospital yesterday. The patient apparently was recently treated for rhabdomyolysis and acute kidney injury. She was evaluated in the emergency department. She was found to be in pulmonary edema. She was given diuresis with Lasix and put on BiPAP. She will require admission for further management. 1. Acute pulmonary edema. 2. Elevated troponin. 3. Acute kidney injury. 4. Status post recent treatment for rhabdomyolysis. 5. Diabetes mellitus type 2. 6. Hypertension. PLAN: 1. We will admit patient to PVC. 2. Continue with diuresis with Lasix. 3. We will continue BiPAP. 4. We will trend her troponins and consult Cardiology. 5. Monitor renal function. 6. Continue to check CPK. 7. Monitor blood glucose. Put patient on sliding scale insulin regimen. 8. We will monitor blood pressure. Resume antihypertensive agent. 9. We will use sequential compression devices for deep vein thrombosis prophylaxis. 10. We will continue to follow, reassess, and make further recommendation based on patient's clinical course. cc: Levi Dyer MD
[2019-12-01] MEDS ORDERED: ZOFRAN IV PRN (23:32)
[2019-12-02 05:42] LABS: BASO# 0.01 X1000 (0.0-0.2); BASO% 0.1 % (0.0-0.8); EOS# 0.02 X1000 (0.0-0.7); EOS% 0.3 % (0.0-10.0); HEMATOCRIT 25.3 % (37.0-47.0); HEMOGLOBIN 7.9 g/dL (12.0-16.0); IMM GRAN# 0.02 X1000 (0.0-0.04); IMM GRAN% 0.3 % (0.0-0.5); LYMPH# 0.73 X1000 (1.2-3.4); LYMPH% 10.1 % (20.5-51.1); MCH 30.2 PG (27-31); MCHC 31.2 g/dL (33-37); MCV 96.6 FL (81-99); MONO# 0.55 X1000 (0.11-0.59); MONO% 7.6 % (1.7-9.3); MPV 9.2 FL (7.4-10.4); NEUT# 5.93 X1000 (1.4-6.5); NEUT% 81.6 % (42.2-75.2); PLT 216 X1000 (130-400); RBC 2.62 XMIL (4.2-5.4); RDW 15.1 % (11.5-14.5); WBC 7.26 X1000 (4.8-10.8)
[2019-12-02] MEDS: HUMULIN R SUBQ SCH ×4 (07:00→20:40)
[2019-12-02] MEDS: PROTONIX PO SCH (07:00)
[2019-12-02 07:28] LABS: CALCIUM 8.3 mg/dL (8.8-10.2); CREATININE 3.2 mg/dL (0.5-0.9); POTASSIUM 3.5 mmol/L (3.5-5.1)
--- NOTE | 2019-12-02 08:09 | EKG Report ---
Test Performed on : 12/01/2019 7:06:59 PM Test Reason : SOB Blood Pressure : / mmHG Vent. Rate : 104 BPM Atrial Rate : 104 BPM P-R Int : 124 ms QRS Dur : 076 ms QT Int : 354 ms P-R-T Axes : 056 042 068 degrees QTc Int : 465 ms Sinus tachycardia. Nonspecific T wave abnormality Abnormal ECG No previous ECGs available Confirmed by Lindsay Zheng MD ([id number]) on 12/02/2019 8:41:22 AM
[2019-12-02] MEDS ORDERED: LASIX IV SCH (09:00)
--- NOTE | 2019-12-02 09:44 | PROGRESS NOTE ---
DATE: 12/02/2019 SUBJECTIVE: The patient reports breathing better. Upon my examination, she is using a BiPAP mask. OBJECTIVE: Vital Signs: Temperature 98.0 degrees, heart rate 73, respiratory rate 20, blood pressure 136/90, O2 saturation 100% on BiPAP. General Examination: This is a chronically ill- looking, 54-year-old, female lying in bed, in no acute distress. Cardiovascular Examination: S1 and S2 heard. No murmurs, gallops, or rubs. Regular rate and rhythm. Respiratory Examination: Crackles all over both pulmonary co[place], mostly noted in both bases. Patient is not using any accessory muscles or having work of breathing. Abdomen: Soft, nontender to palpation. Bowel sounds present. No organomegaly. Extremities: No clubbing or cyanosis. There is 2+ pedal edema in both lower extremities. Peripheral pulses present in both legs. Neurological Examination: The patient is alert, oriented x3. Moves 4 extremities. Laboratory Data: White cell count 7.26, hemoglobin 7.9, hematocrit 25.3, platelets 216,000. Creatinine 3.2, calcium 8.3, phosphorus 5.6. ASSESSMENT AND PLAN: 1. Acute respiratory failure secondary to pulmonary edema. Patient has been started on Lasix 40 mg intravenously every 12 hours. The patient was complaining of some chest discomfort so troponins were checked and those were elevated. From admission, cardiology has been consulted. Electrocardiogram did not show any ST changes or T-wave abnormalities. We will see what cardiology has to say. 2. Acute kidney injury. Patient has been recently admitted to the hospital because of this condition. The patient was followed by nephrology. I think, at some point, a Vas-Cath has been placed for possible dialysis but then patient started improving so it was not needed to do dialysis. In any case, we will consult nephrology at this time. We will continue to monitor. 3. Diabetes mellitus type 2. We will continue with sliding scale insulin. Accu-Chek before meals and also at bedtime. 4. Hypertension. Blood pressure is under control. We will continue with the same management. 5. Disposition. We will monitor this patient closely. cc: Carlos German MD
--- NOTE | 2019-12-02 09:57 | EKG Report ---
Test Performed on : 12/02/2019 09:46:41 AM Test Reason : EKG repeat Blood Pressure : / mmHG Vent. Rate : 083 BPM Atrial Rate : 083 BPM P-R Int : 130 ms QRS Dur : 078 ms QT Int : 404 ms P-R-T Axes : 055 047 -86 degrees QTc Int : 474 ms Normal sinus rhythm. Nonspecific T wave abnormality Prolonged QT Abnormal ECG When compared with ECG of 01-DEC-2019 19:06, No significant change was found Confirmed by Lindsay Zheng MD ([id number]) on 12/03/2019 4:57:10 PM
[2019-12-02] MEDS: ASPIRIN EC PO SCH (10:41)
[2019-12-02] MEDS: ICAR-C PO SCH ×2 (10:41→20:54)
[2019-12-02] MEDS: NORVASC PO SCH ×2 (10:41→20:54)
[2019-12-02] MEDS: PEPCID PO SCH (10:42)
[2019-12-02] MEDS: PAXIL PO SCH (10:42)
--- NOTE | 2019-12-02 11:39 | CONSULTATION ---
DATE OF CONSULTATION: 12/02/2019 IMPRESSION: 1. Mildly elevated troponin in setting of recent rhabdomyolysis and renal dysfunction. Doubt cardiac etiology. 2. Recent rhabdomyolysis of unclear etiology. Consider possibility that statin therapy contributing. 3. Pulmonary edema in setting of renal dysfunction and preserved left ventricular systolic function. 4. Diabetes mellitus type 2. 5. Hypertension. 6. Hyperlipidemia. 7. Anxiety disorder. Probably amplifying symptomatology to some extent. RECOMMENDATIONS: 1. Discontinue rosuvastatin. 2. Limited followup echocardiography. 3. Diurese as you are doing. HISTORY: This 52-year-old white female with past history of recent acute renal failure due to rhabdomyolysis, diabetes mellitus type 2, hypertension, hyperlipidemia, and anxiety disorder was admitted through emergency room last night with acute dyspnea with chest x-ray suggesting pulmonary edema. She was just recently hospitalized here for rhabdomyolysis and acute renal dysfunction. Her rhabdomyolysis etiology was not entirely clear. She had been having some weakness and falls. She has been on rosuvastatin 40 mg daily, but she believes she has been on this for some time and relates there were no new medications started. She was managed conservatively and her renal function improved progressively, and urine output was good. She was discharged yesterday. She had not really had much to eat since she got home and became acutely short of breath and was brought to the emergency room. There has been no chest pain. Troponin was obtained which was mildly elevated. She has not had any previous troponins during her recent hospital stay. Echocardiography during recent hospital stay indicated normal left ventricular ejection fraction. PAST MEDICAL HISTORY: 1. Diabetes mellitus type 2. 2. Obesity. 3. Hypertension. 4. Hyperlipidemia. 5. Anxiety disorder. 6. Recent acute renal failure in setting of rhabdomyolysis. PAST SURGICAL HISTORY: None. ALLERGIES: She has no known drug allergies. MEDICATIONS PRIOR TO ADMISSION: As listed. SOCIAL HISTORY: She is single and disabled. She lives on her mother and father's property. She does not smoke or use alcohol. FAMILY HISTORY: Noncontributory. REVIEW OF SYSTEMS: Pulmonary: Noteworthy for dyspnea, but negative for cough. Gastrointestinal: Noteworthy for some nausea and anorexia. She really has not had much to eat in the last 24 hours. Constitutional: Noncontributory. Remainder of review of systems negative/noncontributory with 14 total systems reviewed. PHYSICAL EXAMINATION: General: This is an obese middle-aged white female, who appears somewhat anxious on BiPAP. Vital signs: Blood pressure 136/90. Heart rate 73 and regular. Oxygen saturation 97 to 98 percent on BiPAP with FiO2 of 50%. HEENT: Extraocular movements appear intact. Mucous membranes are moist. Neck: Supple. Jugular distention is difficult to appreciate. Chest: Clear to auscultation bilaterally. Cardiac Exam: Reveals a regular rate and rhythm without appreciable murmur or gallop. Abdomen: Soft. Nontender. Extremities: Without edema. Neurologic exam: Reveals her to be alert and fully oriented. Speech is fluent. She moves all 4 extremities equally well. Skin: Warm and dry. Psychiatric: Examination reveals her to be somewhat anxious. DIAGNOSTIC DATA: Twelve lead EKG demonstrates sinus rhythm and nonspecific T-wave abnormality. Chest x-ray suggests pulmonary edema. LABORATORY DATA: Includes a white blood cell count of 7.26, hematocrit 25.3, hemoglobin 7.9, platelet count 216. Sodium 144, potassium 3.5, chloride 105, carbon dioxide 23. BUN 39, creatinine 3.2, glucose 105. Initial CPK 864 with followup CPKs 718 and 680. Initial CPK-MB 19.81 with CPK-MB index of 2.3. Initial troponin-T 476 with a followup troponin-T of 478 and 405. cc: Dakota Leblanc MD
[2019-12-02 11:50] LABS: HEMOGLOBIN A1C 5.9 % (4.8-6.0)
--- NOTE | 2019-12-02 13:27 | Diag Imaging Result Doc PS360 ---
EXAM: CT THORAX W/O CONTRAST 12/02/2019 HISTORY: sob, TECHNIQUE: This exam was performed using automated exposure control, adjustment of mA or kV according to patient size, and/or use of iterative reconstruction technique. COMMENT: There are no previous studies available for comparison. There are large bilateral pleural effusions. The pulmonary vascularity appears to be increased. There is near complete atelectasis of the lower lobes there are patchy alveolar and groundglass opacities in both upper lobes and the right middle lobe. There is some prevascular and paratracheal adenopathy. There is subcutaneous edema. No acute bony abnormalities are present. IMPRESSION: Pulmonary edema and/or pneumonia with bilateral pleural effusions and anasarca. Mediastinal adenopathy. Electronically signed by Joon Barth 12/02/2019 1:25 PM
[2019-12-02 16:24] LABS: URINE SOURCE CATH
--- NOTE | 2019-12-02 16:36 | PROVIDER PROGRESS NOTE ---
Progress Note Chief complaint: I couldnt breathe. HPI: Ms. Galindo is a 54-year-old white female who was discharged from the hospital yesterday. She had been admitted for pulmonary edema, acute kidney injury related to rhabdomyolysis with electrolyte abnormalities and acute liver failure. She received IV contrast on 11/18 and her Creatinine peaked at 8.6 on 11/20. It was down to 3.2 at her time of discharge yesterday. She was Home approximately 12 hours when she began feeling short of breath and became anxious. She voices having some nausea as well. She denies chest pain, change in appetite, recent exposure to flu, dizziness, change in urine production, or headaches. Her chest X-ray when compared to the last one taken on 11/24 shows worsened pulmonary edema. Her blood gas had a pH of 7.27 and a PCO2 of 47. Her lactate was 2.5. She was placed on 100% nonrebreather and then advanced to BiPAP. Her Creatinine has remained unchanged since discharge at 3.2. Her urine is suggestive of rhabdomyolysis. She is being admitted for flash pulmonary edema. Past medical history: hypertension, hyperlipidemia, diabetes mellitus type two, depression, recent rhabdomyolysis Past surgical history: none reported. Social history: She lives behind her parents. Her mother is her guardian ad litem and is also caring for her father right now. She denies alcohol, tobacco, or illicit drug use. Family history: non contributory Allergies: no known Home medications: Amlodipine, aspirin, Pepcid, I car, protonix, pantoprazole, rosuvastatin calcium, Januvia, trazodone. Review of systems: A 14 point review of systems complete. All pertinent positives listed in the above HPI Physical Exam: temperature 98.0, pulse 73, respirations 20, blood pressure 136/90, O2 sat 100% on BiPAP. General: white female lying in bed in no obvious distress. HEENT: normocephalic, atraumatic, pupils equal and reactive, conjunctiva are pink, mucous membranes moist. Skin: warm and dry. Neck: supple, 8cm JVD appreciated. Cardiovascular: s1S2, regular rate and rhythm. No murmur or gallop. Respiratory: expiratory wheezing anteriorly Abdomen: soft, nontender, nondistended. Bowel sounds present. : non inspected. Extremities: no clubbing or cyanosis.1+ edema to BUE and BLE. Neurological: alert and oriented to person, place, and time. Labs: WBC 7.26, hemoglobin 7.9, hematocrit 25.3, platelet count to 16, sodium 144, potassium 3.5, chloride 105, carbon dioxide 23, BUN 39, creatinine 3.2, calcium 8.3, C-reactive protein 7.34, troponin T series trending. Imaging: Chest x-ray impression worsened pulmonary edema Assessment and Plan: Acute kidney injury likely rhabdomyolysis causing acute tubular necrosis. BUN and Creatinine Stable from last admission. Her statin has been discontinued. We will re-image her kidneys and monitor. Blood pressure.In target. Fluid volume. Expanded. Lasix on board. Anemia. Low, but stable. Does not meet transfusion criteria. Noted to be trending down over the last week. Electrolytes. Stable. Acid base balance. Stable. Nutrition. Diet ordered. Ambulation. Order PT Medication review.
[2019-12-02 16:41] LABS: UR CREAT RANDOM 23.9 mg/dL (11-20); UR PROT RANDOM 43.9 mg/dL
[2019-12-02 16:47] LABS: BILIRUBIN URINE NEGATIVE (NEGATIVE); BLOOD URINE MODERATE (NEGATIVE); COLOR STRAW; GLUCOSE URINE NEGATIVE (NEGATIVE); KETONE URINE TRACE mg/dL (NEGATIVE); LEUKOCYTES URINE NEGATIVE (NEGATIVE); NITRITE URINE NEGATIVE (NEGATIVE); PROTEIN URINE 50 mg/dL (NEGATIVE); TURBIDITY URINE CLEAR (CLEAR); UROBILINOGEN URINE NORMAL (NORMAL)
[2019-12-02 16:55] LABS: UR EPITHELIAL CELLS <10 /HPF (<10); URINE BACTERIA NEGATIVE /HPF; URINE RBC TNTC /HPF (<10); URINE WBC <10 /HPF (<10)
[2019-12-02] MEDS: ATIVAN IV PRN ×2 (17:12→20:54)
[2019-12-02 17:21] LABS: URINE CASTS NONE SEEN; URINE CRYSTALS NONE SEEN; URINE YEAST NONE SEEN
[2019-12-02] MEDS: TESSALON PO PRN (17:49)
--- NOTE | 2019-12-02 17:49 | Diag Imaging Result Doc PS360 ---
EXAM: US RENAL 2 (RETROPER) COMPLETE INDICATION: decreased renal function TECHNIQUE: COMPARISON: Abdominal ultrasound dated 11/20/2019 FINDINGS: The kidneys are grossly normal in echotexture with no discrete renal mass or hydronephrosis. The right kidney measures 11.4 cm and the left kidney measures 11.7 cm in the greatest longitudinal axes. The right renal cortex measures 1 cm and the left renal cortex measures 1.2 cm in thickness. There is a Pearson catheter in the urinary bladder and the bladder is partially distended. It is grossly unremarkable, otherwise. IMPRESSION: Grossly unremarkable renal ultrasound. Electronically signed by Anthony Stevens 12/02/2019 5:47 PM
[2019-12-02] MEDS ORDERED: LASIX IV ONE (18:04)
[2019-12-02 18:39] LABS: ALLEN TEST YES; BLOOD TYPE ARTERIAL; HCO3-(ACT) 23.4 mmoll (20.0-26.0); METHB 1.3 % (0.0-1.5); O2(CT) 12.7 mL/dL (15.0-23.0); O2HB 96.1 % (95.0-99.0); PCO2(98.6) 47 mmHg (35-45); PO2(98.6) 96 mmHg (60-100); SAMPLE BLOOD; THB 9.3 g/dL (11.5-17.4); pH(98.6) 7.32 (7.35-7.45)
[2019-12-02 18:41] LABS: MODALITY BI PAP
[2019-12-02] MEDS: DESYREL PO SCH (20:54)
[2019-12-02] MEDS ORDERED: CRESTOR PO SCH (21:00)
[2019-12-03 04:27] LABS: ALLEN TEST YES; BLOOD TYPE ARTERIAL; HCO3-(ACT) 30.4 mmoll (20.0-26.0); METHB 1.2 % (0.0-1.5); O2(CT) 12.1 mL/dL (15.0-23.0); O2HB 96.3 % (95.0-99.0); PCO2(98.6) 32 mmHg (35-45); PO2(98.6) 90 mmHg (60-100); SAMPLE BLOOD; SAO2 98.8 % (95.0-100.0); THB 8.8 g/dL (11.5-17.4)
[2019-12-03 04:34] LABS: MODALITY BI PAP; pH(98.6) 7.57 (7.35-7.45)
[2019-12-03] MEDS: PROTONIX PO SCH ×2 (05:53→06:00)
[2019-12-03] MEDS: HUMULIN R SUBQ SCH ×4 (06:00→20:09)
--- NOTE | 2019-12-03 06:22 | PROGRESS NOTE ---
DATE: 12/03/2019 SUBJECTIVE: Yesterday afternoon I was informed that this patient started having more difficulty in breathing. She was admitted for pulmonary edema and elevated troponins. She received 1 dose of Lasix 80 mg IV and she was transferred to the intensive care unit. Upon my examination this morning, she reports breathing better. She was using BiPAP at 100% yesterday afternoon and today she is using a Ventimask. Upon my examination, she reports breathing better although she looks like she is still tachypneic and having labored breathing. No other issues noted as per nursing staff overnight. OBJECTIVE: Vital Signs: Temperature 96.7 degrees, heart rate 75, respiratory rate 26, blood pressure 115/61, O2 saturation 99% on Venturi mask. General: This is a chronically ill-looking, 54-year-old female, lying in bed, in no acute distress. Cardiovascular: S1, S2 heard. Tachycardic but no murmurs, gallops, or rubs. Regular rate and rhythm. Respiratory: Crackles all over both pulmonary coleman. The patient is using some accessory muscles. Patient has labored breathing. Abdomen: Soft, nontender to palpation. Bowel sounds present. No organomegaly. Extremities: No clubbing or cyanosis. There is 2 +pedal edema in both lower extremities. Peripheral pulses present in both legs. Neurological: Patient is alert and oriented x3. Moves 4 extremities. LABORATORY DATA: ABG from this morning shows pH 7.57 with pCO2 32, PO2 90. That was taken on BiPAP at FiO2 of 50%. ASSESSMENT AND PLAN: 1. Acute respiratory failure secondary to pulmonary edema. That condition started getting worse yesterday afternoon. Yesterday in the morning, she received 1 dose of Lasix 40 mg IV on then just around 7 p.m. she received another dose of Lasix 80 mg IV and apparently it helped. Patient's urine output is definitely good. We are going to check an x-ray this morning. We are going to increase the dose of Lasix to 80 mg IV twice daily. We will continue to monitor this patient closely. She is at high risk for intubation. Pulmonary has been consulted. We will follow recommendations. 2. Elevated troponins. There have not been any ST changes or T-wave abnormalities there. Cardiology is following this patient. It is important to remark that this volume overload is in the setting of a normal ejection fraction. There is an echocardiogram has been checked 2 weeks ago. At this point, there are no plans to do any ischemic workup because most likely those troponins are related to the acute kidney injury and rhabdomyolysis. 3. Acute kidney injury. The patient was admitted to the hospital for that condition last hospitalization one week ago. Her renal function is stable, actually creatinine getting better in comparing with the prior admission. Dr. Narvaez from Nephrology is following this patient. We will follow recommendations. 4. Diabetes mellitus type 2. We will continue with sliding scale insulin and Accu-Chek before meals and also at bedtime. 5. Hypertension. Blood pressure is under control. We will continue with the same management. 6. Disposition. We will monitor this patient closely in the intensive care unit. The patient is having labored breathing. We have increased the dose of Lasix. Pulmonary has been consulted. We will follow recommendations. The CT of the chest did show pulmonary edema and/or pneumonia with bilateral pleural effusions and anasarca. At this point, I do not think this patient has pneumonia considering that she is not spiking any fever and her white cell count has been normal at admission. We will continue to monitor. cc: Carlos German MD MTDD
[2019-12-03 07:07] LABS: HEMATOCRIT 24.1 % (37.0-47.0); HEMOGLOBIN 7.7 g/dL (12.0-16.0); MCH 30.9 PG (27-31); MCV 96.8 FL (81-99); MPV 10.8 FL (7.4-10.4); RBC 2.49 XMIL (4.2-5.4); RDW 15.2 % (11.5-14.5); WBC 7.2 X1000 (4.8-10.8)
--- NOTE | 2019-12-03 07:24 | Diag Imaging Result Doc PS360 ---
EXAM: CHEST-1 VIEW INDICATION: SOB TECHNIQUE: One view COMPARISON: 12/01/2019 FINDINGS: Bilateral interstitial and airspace infiltrates with a perihilar and basilar predominance most compatible with pulmonary edema are again identified. They are stable to marginally worse than the previous study. No new consolidation is identified, otherwise. Cardiac silhouette is stable. IMPRESSION: Stable to marginal worsening of pulmonary edema. Electronically signed by Anthony Stevens 12/03/2019 7:22 AM
[2019-12-03 07:53] LABS: CALCIUM 8.4 mg/dL (8.8-10.2); CREATININE 3.1 mg/dL (0.5-0.9); PHOSPHORUS 3.7 mg/dL (2.7-4.5)
[2019-12-03 08:27] LABS: POTASSIUM 2.5 mmol/L (3.5-5.1)
[2019-12-03] MEDS ORDERED: LASIX IV SCH (09:00)
[2019-12-03] MEDS: NORVASC PO SCH ×2 (09:05→20:09)
[2019-12-03] MEDS: PAXIL PO SCH (09:05)
[2019-12-03] MEDS: ASPIRIN EC PO SCH (09:05)
[2019-12-03] MEDS: ATIVAN IV PRN ×2 (09:05→18:00)
[2019-12-03] MEDS: ICAR-C PO SCH ×2 (09:05→20:09)
[2019-12-03] MEDS: LASIX IV SCH ×2 (09:05→20:09)
[2019-12-03] MEDS: PEPCID PO SCH (09:05)
[2019-12-03] MEDS: KLOR-CON PO SCH ×2 (10:02→20:09)
--- NOTE | 2019-12-03 13:06 | ECHO REPORT ---
ORDER DATE: 12/02/2019 INDICATIONS: This is a limited echocardiogram to evaluate pericardial effusion. FINDINGS: 1. Limited study with the patient being significantly tachycardic, making ejection fraction estimate difficult. Would recommend repetition of the study when the patient is not so tachycardic. 2. No mitral valve prolapse. There is mild mitral regurgitation. 3. The aortic valve appears to open well. 4. I do not see any clear evidence of pericardial effusion other than possibly a very scant one anteriorly. There is no evidence of tamponade physiology. There is a large pleural effusion identified. 5. Right heart structures not well evaluated. cc: MD Tricia Hunt PA
--- NOTE | 2019-12-03 16:29 | PROVIDER PROGRESS NOTE ---
Progress Note Chief complaint: I couldnt breathe. HPI: Ms. Galindo is a 54-year-old white female who was discharged from the hospital yesterday. She had been admitted for pulmonary edema, acute kidney injury related to rhabdomyolysis with electrolyte abnormalities and acute liver failure. She received IV contrast on 11/18 and her Creatinine peaked at 8.6 on 11/20. It was down to 3.2 at her time of discharge yesterday. She was Home approximately 12 hours when she began feeling short of breath and became anxious. She voices having some nausea as well. She denies chest pain, change in appetite, recent exposure to flu, dizziness, change in urine production, or headaches. Her chest X-ray when compared to the last one taken on 11/24 shows worsened pulmonary edema. Her blood gas had a pH of 7.27 and a PCO2 of 47. Her lactate was 2.5. She was placed on 100% nonrebreather and then advanced to BiPAP. Her Creatinine has remained unchanged since discharge at 3.2. Her urine is suggestive of rhabdomyolysis. She is being admitted for flash pulmonary edema. Past medical history: hypertension, hyperlipidemia, diabetes mellitus type two, depression, recent rhabdomyolysis Past surgical history: none reported. Social history: She lives behind her parents. Her mother is her powder guard and is also caring for her father right now. She denies alcohol, tobacco, or illicit drug use. Family history: non contributory Allergies: no known Home medications: Amlodipine, aspirin, Pepcid, I car, protonix, pantoprazole, rosuvastatin calcium, Januvia, trazodone. Review of systems: A 14 point review of systems complete. All pertinent positives listed in the above HPI Physical Exam: temperature 98.0, pulse 73, respirations 20, blood pressure 136/90, O2 sat 100% on BiPAP. General: white female lying in bed in no obvious distress. HEENT: normocephalic, atraumatic, pupils equal and reactive, conjunctiva are pink, mucous membranes moist. Skin: warm and dry. Neck: supple, 8cm JVD appreciated. Cardiovascular: s1S2, regular rate and rhythm. No murmur or gallop. Respiratory: expiratory wheezing anteriorly Abdomen: soft, nontender, nondistended. Bowel sounds present. : non inspected. Extremities: no clubbing or cyanosis.1+ edema to BUE and BLE. Neurological: alert and oriented to person, place, and time. Labs: WBC 7.26, hemoglobin 7.9, hematocrit 25.3, platelet count to 16, sodium 144, potassium 3.5, chloride 105, carbon dioxide 23, BUN 39, creatinine 3.2, calcium 8.3, C-reactive protein 7.34, troponin T series trending. Imaging: Chest x-ray impression worsened pulmonary edema Assessment and Plan: Acute kidney injury likely rhabdomyolysis causing acute tubular necrosis. BUN and Creatinine Stable from last admission. Her statin has been discontinued. We will re-image her kidneys and monitor. No reason to expect that she has a new form of kidney injury. Slow recovery. Blood pressure.In target. Fluid volume. volume overloaded with symptomatic respiratory failure. IV lasix. Anemia. Low, but stable. Does not meet transfusion criteria. Noted to be trending down over the last week. Electrolytes. Stable. Acid base balance. Stable. Nutrition. Diet ordered. Ambulation. Not ready for PT. Medication review. No changes. kay
[2019-12-03 16:43] LABS: CALCIUM 8.6 mg/dL (8.8-10.2); CREATININE 2.8 mg/dL (0.5-0.9); POTASSIUM 2.9 mmol/L (3.5-5.1)
[2019-12-03] MEDS: POTASSIUM CHLORIDE 20 MEQ/SWI 20 MEQ/100 ML IVPB IV SCH ×2 (19:24→21:27)
--- NOTE | 2019-12-03 19:26 | PROGRESS NOTE ---
DATE: 12/03/2019 SUBJECTIVE: The patient reports still having some shortness of breath, although she is progressively improving. She relates some nonproductive cough. There has been no chest pain. She is diuresing well in response to Lasix. OBJECTIVE: Vital signs: Blood pressure 141/87, heart rate 106, oxygen saturation 97% on oxygen by mask. Neck: Jugular venous distention cannot be appreciated. Chest: Auscultation reveals persistent pulmonary edema. LABORATORY DATA: Includes white blood cell count 7.2, hematocrit 24.1, hemoglobin 7.7, and platelet count 183,000. Sodium 140, potassium 2.9, chloride 93, carbon dioxide 32, BUN 40, creatinine 2.8, glucose 158. CPK 556. Albumin 4.0. IMPRESSION: 1. Recent mild elevation in troponin in the setting of recent rhabdomyolysis and renal dysfunction. Suspect this is likely related to rhabdomyolysis. Doubt cardiac etiology. 2. Recent rhabdomyolysis of unclear etiology. Cannot exclude contribution of recent statin therapy. Crestor has been discontinued. 3. Volume overload/pulmonary edema in the setting of renal dysfunction. Repeat echocardiography scan demonstrates preserved left ventricular systolic function. 4. Type 2 diabetes mellitus. 5. Hypertension. 6. Hyperlipidemia. 7. Anxiety disorder. RECOMMENDATIONS: 1. Continue diuresis. 2. Leave off statin therapy pending resolution of rhabdomyolysis and improvement in renal function. Alternative statin might be considered, but would need to be initiated very cautiously to monitor for any possible evidence of myopathy. cc: Dakota Leblanc MD
[2019-12-03] MEDS: DESYREL PO SCH (20:09)
--- NOTE | 2019-12-03 21:36 | PULMONOLOGY CONSULTATION ---
DATE: 12/03/2019 CHIEF COMPLAINT: Shortness of breath. HISTORY OF PRESENT ILLNESS: This is a 52-year-old female with a history of diabetes mellitus, hypertension, hyperlipidemia, and anxiety disorder, who was hospitalized from November 19 to December 01 for acute kidney injury secondary to rhabdomyolysis. She stated that when she went home she was feeling better but that in the hours prior to coming to the emergency room, she stated "I had an anxiety attack. I could not breathe, and I thought I was going to ." She was found to have pulmonary edema on imaging. She was given Lasix in the emergency room and has been ordered Lasix b.i.d. by the hospitalist service. At present, she is -5660 mL. While in the emergency room, she was found to have an elevated troponin. Cardiology has evaluated the patient, and they doubted this is cardiac etiology, as this is in the setting of rhabdomyolysis and renal dysfunction. She has denied any chest pain, productive cough, any fevers or chills. Of note, she did have an echocardiogram on 11/23, which revealed a preserved ejection fraction. This morning, chest x-ray revealed stable to marginal worsening of pulmonary edema. While in the emergency room, she was placed on BiPAP. She has since been weaned down to a Venturi mask at 60%. At the time of my exam, she is able to talk in full sentences and cooperate with interview. When the patient is sitting quietly, respirations are 20 to 24. When she begins to talk to hospital staff, she does become agitated. She will tell you, "I am nervous talking with y'all," and respirations will go up to the high 20s to 30, 32. PAST MEDICAL HISTORY: Diabetes mellitus type 2, hypertension, hyperlipidemia, anxiety disorder, recent rhabdomyolysis, and acute kidney injury. PAST SURGICAL HISTORY: Denies. SOCIAL HISTORY: She denies alcohol, tobacco, or illicit drug use. She lives next door to her parents. ALLERGIES: No known drug allergies listed. HOME MEDICATIONS: A list will be obtained by the nursing staff and once verified, will review and restart as appropriate. FAMILY HISTORY: She denies a history of coronary artery disease or any lung problems. REVIEW OF SYSTEMS: Discussed patient with pertinent positives stated in the HPI. She denied any syncope or dizziness any chest pain or palpitations, a productive cough, any fevers or chills, any nausea, vomiting, diarrhea, constipation, black or bloody vomitus or stools, any hematuria, dysuria, frequency or urgency. PHYSICAL EXAMINATION: General: This is a 54-year-old female who is sitting up in the bed in ICU in no distress. Eyes: Eyes pupils are equal, round, react to light. EOMs are intact. Sclerae anicteric. HEENT: Head is normocephalic, atraumatic. Mucous membranes are moist. Neck: Supple with trachea midline. Cardiovascular: Regular rate and rhythm. S1 and S2 appreciated. She does have bilateral lower extremity edema with calves nontender bilateral with peripheral pulses palpable in lower extremities. Pulmonary: She has bilateral crackles scattered throughout. Chest rises and falls symmetric with respiration. Chest wall is nontender to palpation. Gastrointestinal: Abdomen is soft, nontender, nondistended with bowel sounds in all 4 quadrants. Genitourinary: Pearson is patent to bedside bag with clear yellow urine draining. Neurologic: She is alert and oriented. Skin: Warm and dry. LABS: WBC is 7.2 with hemoglobin 7.7, hematocrit 24.1, and platelets of 183,000. Sodium is 150, potassium 2.5, BUN 41, creatinine 3.1 with a glucose of 87, anion gap is 19 with a CPK of 556. INR is 1.03. ABGs on BiPAP at 50%, 18/8, pH is 7.57 with pCO2 of 32, PO2 of 90, bicarb of 30.4. Blood cultures are pending. Chest x-ray reveals stable to marginal worsening of a pulmonary edema. ASSESSMENT AND PLAN: 1. Acute respiratory failure secondary to pulmonary edema, presumed flash pulmonary edema. We continue with IV Lasix b.i.d. At present she is -5660 mL. continue with strict I and O. 2. Elevated troponins. She has been evaluated by Cardiology. They feel that she does not require any further ischemic workup as they feel this is related to acute kidney injury and rhabdomyolysis. 3. Acute kidney injury. Dr. Narvaez has been consulted. 4. Diabetes mellitus type 2. continue with pattern blood glucose with sliding scale insulin. 5. Hypertension. Monitor vital signs. Continue home medications as appropriate. 6. Hypokalemia. supplement her potassium and recheck labs at 6 o'clock. 7. Anemia. Hemoglobin is 7.7 and hematocrit 24.1 today. During her prior hospitalization she ranged 8 to 11.6 and 24 to 29. check stools for blood. CBC in the morning. No anticoagulation for DVT prophylaxis, will use SCDs. Dictated by LILIANA Ansari for Gomez Grover MD cc: LILIANA Ansari MD [facility]
[2019-12-04] MEDS: TESSALON PO PRN ×2 (05:21→11:43)
[2019-12-04] MEDS ORDERED: ZOSYN 3.375 GM in NS 50 ML IV SCH (05:45)
--- NOTE | 2019-12-04 05:48 | Diag Imaging Result Doc PS360 ---
EXAM: CHEST-PORTABLE HISTORY: respiratory failure TECHNIQUE: Single view COMPARISON: 12/03/2019 FINDINGS: The lungs are well expanded. No cardiomegaly. There are diffuse bilateral infiltrates similar to the prior exam. Small effusions. These may be slightly less pronounced. There is left basilar atelectasis. IMPRESSION: Slight interval improvement Electronically signed by Minesh Eagle 12/04/2019 5:45 AM
[2019-12-04] MEDS ORDERED: MAGNESIUM SULFATE 2 GM/S.W.I. 2 GM/50 ML IVPB IV ONE (06:00)
[2019-12-04 06:03] LABS: HEMATOCRIT 29.7 % (37.0-47.0); HEMOGLOBIN 9.6 g/dL (12.0-16.0); MCH 30.9 PG (27-31); MCHC 32.3 g/dL (33-37); MCV 95.5 FL (81-99); MPV 10.4 FL (7.4-10.4); RBC 3.11 XMIL (4.2-5.4); RDW 15.4 % (11.5-14.5); WBC 6.95 X1000 (4.8-10.8)
[2019-12-04] MEDS: PROTONIX PO SCH (06:12)
[2019-12-04] MEDS: HUMULIN R SUBQ SCH ×4 (06:13→20:47)
[2019-12-04] MEDS: ZOSYN 2.25 GM in NS 50 ML IV SCH ×3 (06:15→17:34)
[2019-12-04 06:29] LABS: ALBUMIN 3.9 g/dL (3.5-5.0); CALCIUM 8.9 mg/dL (8.8-10.2); CREATININE 2.6 mg/dL (0.5-0.9); POTASSIUM 3.5 mmol/L (3.5-5.1)
--- NOTE | 2019-12-04 06:34 | PROGRESS NOTE ---
DATE: 12/04/2019 SUBJECTIVE: According to nursing staff, patient has been breathing much better. Her oxygen needs are also getting down and she is going to use now oxygen by nasal cannula. Upon my examination, patient reports breathing better as well much better in comparing with yesterday. Her urine output is excellent. OBJECTIVE: Vital Signs: Temperature 100.1 degrees, heart rate 103, respiratory rate 22, blood pressure 92/65, O2 saturation 94% on Venturi mask at 35%. General Examination: This is a chronically ill-looking, 55-year-old female lying in bed, in no acute distress. Cardiovascular: S1, S2 heard. Tachycardic but no murmurs, gallops, or rubs. Respiratory: Crackles all over both pulmonary coleman. Definitely much better in comparing with yesterday. Patient not using any accessory muscles or having work of breathing. Abdomen: Soft. A little bit distended. Nontender to palpation. No clubbing, cyanosis or edema. No organomegaly. Extremities: No clubbing or cyanosis. There is 1+ pitting edema in both lower extremities. Peripheral pulses present in both legs. Neurologic: Patient alert and oriented x3. Moves 4 extremities. LABORATORY DATA: Pending at the time of my dictation. ASSESSMENT AND PLAN: 1. Acute respiratory failure secondary to pulmonary edema. Clinically, this patient is getting better after we increased the dose of Lasix to 80 mg IV q.12 hours. The patient continues to have a good urine output the last 24 hours. 5.5 L. At this point, we will continue with current management. We do not have results from creatinine from today but from yesterday, it shows improvement. We will continue with the same management. 2. Elevated troponins most likely related to acute kidney injury. Cardiology has evaluated this patient and they are not going to pursue any ischemia workup for this patient. 3. Acute kidney injury. Renal function continues to improve. That has been secondary to rhabdomyolysis. In any case, during the first 3 days the patient's renal function gets better. We will continue to monitor. 4. Community-acquired pneumonia. One of the descriptions for this patient in the CT scan of the chest is pneumonia. Considering that this patient started having tachycardia and mild grade fever of 100.2, I prefer to go ahead on cover this patient with antibiotics. In this case, Teflaro and Zosyn renally dosed. We will continue to monitor. 5. Diabetes mellitus type 2. We will continue with the sliding scale insulin. Accu-Chek before meals and also at bedtime. 6. Hypertension. Blood pressure is under control. We will continue with the same management. 7. Disposition. The patient continues to improve clinically. At this point, I think this patient should be stable enough to go to [facility]. cc: Carlos German MD MTDD
[2019-12-04] MEDS: TEFLARO 400 MG in NS 250 ML IV SCH ×2 (08:16→20:46)
[2019-12-04] MEDS: LASIX IV SCH ×2 (08:17→20:47)
[2019-12-04] MEDS: NORVASC PO SCH ×2 (08:17→20:47)
[2019-12-04] MEDS: ICAR-C PO SCH ×2 (08:17→20:46)
[2019-12-04] MEDS: PAXIL PO SCH (08:17)
[2019-12-04] MEDS: ASPIRIN EC PO SCH (08:17)
[2019-12-04] MEDS: KLOR-CON PO SCH ×2 (08:17→20:46)
[2019-12-04] MEDS: PEPCID PO SCH (08:17)
--- NOTE | 2019-12-04 12:21 | EKG Report ---
Test Performed on : 12/04/2019 06:43:24 AM Test Reason : dyspnea Blood Pressure : / mmHG Vent. Rate : 101 BPM Atrial Rate : 101 BPM P-R Int : 132 ms QRS Dur : 074 ms QT Int : 384 ms P-R-T Axes : 039 070 -42 degrees QTc Int : 497 ms Sinus tachycardia. Nonspecific T wave abnormality Abnormal ECG When compared with ECG of 02-DEC-2019 09:46, No significant change was found Confirmed by Ovi Poole MD ([id number]) on 12/07/2019 9:35:29 PM
--- NOTE | 2019-12-04 14:06 | CARDIOLOGY PROGRESS NOTE ---
DATE: 12/04/2019 SUBJECTIVE: The patient reports she feels a little bit better today. Her breathing has improved. PHYSICAL EXAMINATION: Vital signs: T-max of 100.1 degrees this morning at 4 a.m. Heart rates in the 90s to low 100s. Blood pressure 106/74. Her intakes and outputs continue to be significantly negative, she has a 8.2 L net output. General: No acute distress. Cardiovascular: She sounds to be in a regular rate and rhythm. She has no murmurs, no S3, no lower extremity edema. Chest: Sounds relatively clear with the exception of mild reduction in breath sounds in the bases. No increased work of breathing. Abdomen: Soft, nontender. PERTINENT DATA: White count 6.9, hematocrit 29, platelet count 241,000. Sodium 147, potassium 3.5, BUN 35, creatinine 2.6, this has improved steadily since it was 3.2 on the . Mag level 1.5. ASSESSMENT: Ms. Galindo is a 54-year-old female who presented with acute kidney injury, volume overload with a troponin elevation. She was found to be in rhabdomyolysis. PLAN: At this point, we will continue diuresing the patient. She has good urine output with improvement in her renal function. Her potassium and magnesium have continued to improve. No further recommendations at this point. cc: Manuel Jaime MD
--- NOTE | 2019-12-04 17:58 | PULMONOLOGY PROGRESS NOTE ---
DATE: 12/04/2019 SUBJECTIVE: Ms Galindo feels better today. She is sitting up in the bed eating. She denies any shortness of breath. OBJECTIVE: Vital signs: Blood pressure is 113/60 with a heart rate of 92, respirations are 20 to 22, temperature is 98.5 degrees with O2 saturations are 96 to 98% on 2 L nasal cannula. HEENT: Head is normocephalic, atraumatic. Mucous membranes are moist. Neck: Supple with trachea midline. No JVD. Cardiovascular: Regular rate and rhythm. S1 and S2 are appreciated no murmurs. She has bilateral pretibial edema. Calves are nontender bilateral with peripheral pulses palpable all 4 extremities. Pulmonary: Breath sounds have some fine crackles scattered throughout with no increased work of breathing. Chest rises and falls symmetric with respiration. Gastrointestinal: Abdomen soft, nontender, nondistended with bowel sounds in all 4 quadrants. Neurologic: She is alert, oriented x3. LABS: WBC is 6.9 with hemoglobin 9.6, hematocrit 29.7, platelets of 241,000. Sodium 147, potassium 3.5, BUN 35, creatinine 2.6 with a glucose of 123. Blood cultures are negative x2. Chest x-ray revealed lungs well expanded, there diffuse bilateral infiltrates, small effusions that may be slightly less pronounced with left basilar atelectasis. IMPRESSION: This is a 54-year-old female with 1. Acute respiratory failure secondary to pulmonary edema presumed flash [*] greatly. 2. Elevated troponins being followed by Cardiology. 3. Acute kidney injury followed by Dr. Narvaez. 4. Diabetes mellitus type 2. 5. Hypertension. 6. Anemia. PLAN: 1. She has a cumulative negative balance of 8720 mL, will continue with diuresis. 2. Continue with supplemental oxygen. 3. Hypokalemia. Continue to recheck labs and supplement as appropriate. 4. Continue home medications as per primary team. 5. For DVT prophylaxis SCDs. 6. GI prophylaxis PPI. Dictated by LILIANA Ansari for Gomez Grover MD cc: LILIANA Ansari MD
[2019-12-04] MEDS: DESYREL PO SCH (20:47)
[2019-12-05] MEDS: ZOSYN 2.25 GM in NS 50 ML IV SCH ×4 (01:00→17:12)
[2019-12-05] MEDS: PROTONIX PO SCH (06:32)
[2019-12-05] MEDS: HUMULIN R SUBQ SCH ×4 (06:39→20:50)
[2019-12-05] MEDS ORDERED: SODIUM PHOSPHATE 40 MMOL in NS 250 ML IV ONE (06:58)
--- NOTE | 2019-12-05 07:31 | PROGRESS NOTE ---
DATE: 12/05/2019 SUBJECTIVE: The patient had a good night. Not requiring any oxygen supplementation. Upon my examination, she looks much better. Not tachypneic. Urine output is good today. OBJECTIVE: Vital Signs: Temperature 97.4 degrees, heart rate 96, respiratory rate 18, blood pressure 107/76, O2 saturation 99% on room air. General Examination: This is a chronically ill- looking, 54-year-old, female, lying in bed, in no acute distress. Cardiovascular Examination: S1 and S2 heard. Tachycardic but no murmurs, gallops, or rubs noted. Respiratory Examination: Clear bilaterally to auscultation. Minimal crackles noted in both bases. Patient is not using any accessory muscles or having work of breathing. Abdomen: Soft. A little bit distended. Nontender to palpation. Bowel sounds present. No organomegaly. Extremities: No clubbing or cyanosis. There is no edema in both lower extremities. Peripheral pulses present in both legs. Neurological Examination: The patient is alert and oriented x3. Moves 4 extremities. Laboratory Data: Pending at the time of my dictation. ASSESSMENT AND PLAN: 1. Acute respiratory failure secondary to pulmonary edema. That condition is resolved. Patient is not requiring any oxygen supplementation. We have bumped up the dose of Lasix just the day before yesterday to 80 mg intravenously every 12 hours. She continues to have excellent urine output. During the last 24 hours, she has made 3.4 L of urine. At this point, now that she is not requiring any oxygen supplementation, I am planning to reduce the dose of Lasix to 40 mg intravenously every 12 hours. We will continue to monitor BMP daily and we will transfer this patient to a regular room today. 2. Elevated troponins. Those are most likely related to acute kidney injury and mismatch demand supply. Cardiology has been following this patient. They are not going to pursue any ischemia workup for this patient. 3. Acute kidney injury. Kidney function continues to improve even though she has being on high doses of Lasix. That is thought to be secondary to rhabdomyolysis. At this point, we will continue to check renal profile daily. 4. Community-acquired pneumonia. Patient will continue with the Flagyl and Zosyn. White cell count is normal and patient did not spike any fever again so we will continue with the same management. 5. Diabetes mellitus type 2. We will continue with sliding scale insulin. Accu-Chek before meals and also at bedtime. 6. Hypertension. Blood pressure is under control. We will continue with the same medication. 7. Disposition. As we mentioned before, the patient's hospital course is definitely very good so we are going to transfer this patient to a regular room today. cc: Carlos German MD
[2019-12-05 07:33] LABS: HEMATOCRIT 33.5 % (37.0-47.0); HEMOGLOBIN 10.6 g/dL (12.0-16.0); MCH 30.6 PG (27-31); MCHC 31.6 g/dL (33-37); MCV 96.8 FL (81-99); MPV 10.5 FL (7.4-10.4); RBC 3.46 XMIL (4.2-5.4); RDW 15.4 % (11.5-14.5); WBC 5.33 X1000 (4.8-10.8)
--- NOTE | 2019-12-05 07:45 | Diag Imaging Result Doc PS360 ---
EXAM: CHEST-PORTABLE - 12/05/2019 HISTORY: respiratory failure TECHNIQUE: Portable chest COMPARISON: 12/04/2019 FINDINGS: Heart size appears within normal limits. There are bilateral infiltrates which have decreased compared to prior. There are tiny pleural effusions. There is no evidence of pneumothorax. IMPRESSION: Some decrease in bilateral infiltrates. Electronically signed by Antwan Solano 12/05/2019 7:42 AM
[2019-12-05 07:59] LABS: ALBUMIN 4.2 g/dL (3.5-5.0); CALCIUM 8.9 mg/dL (8.8-10.2); CREATININE 2.9 mg/dL (0.5-0.9); PHOSPHORUS 2.4 mg/dL (2.7-4.5); POTASSIUM 4.5 mmol/L (3.5-5.1)
[2019-12-05] MEDS: TEFLARO 400 MG in NS 250 ML IV SCH ×2 (08:12→20:49)
[2019-12-05] MEDS: ASPIRIN EC PO SCH (08:14)
[2019-12-05] MEDS: NORVASC PO SCH ×2 (08:14→20:49)
[2019-12-05] MEDS: PAXIL PO SCH (08:14)
[2019-12-05] MEDS: PEPCID PO SCH (08:14)
[2019-12-05] MEDS: ICAR-C PO SCH ×2 (08:15→20:49)
[2019-12-05] MEDS: LASIX IV SCH ×2 (08:15→20:50)
[2019-12-05] MEDS ORDERED: KLOR-CON PO SCH (09:00)
--- NOTE | 2019-12-05 14:05 | PULMONOLOGY PROGRESS NOTE ---
DATE: 12/05/2019 SUBJECTIVE: The patient is awake and alert. She is cheerful. She tells me that she is feeling much better. She sat up in a chair yesterday. She states she has got her appetite back and that she is eating all of her meals served. OBJECTIVE: Vital Signs: Blood pressure is 103/63, with a heart rate of 89, respirations 17, temperature is 98.5 degrees temporal, with O2 saturations that are 95 to 98 percent on room air. Eyes: Pupils are equal, round, react to light. EOMs are intact. Sclerae anicteric. HENT: Head is normocephalic, atraumatic. Mucous membranes are moist. Neck: Supple, with trachea midline. No JVD. Cardiovascular: Regular rate and rhythm. S1 and S2 are appreciated. No murmurs. Pretibial edema is decreasing. Calves are nontender bilateral with peripheral pulses palpable x4 extremities. Pulmonary: Breath sounds are diminished in the bases. Chest rises and falls symmetric with respiration. Chest wall is nontender to palpation. She has no increased work of breathing. Gastrointestinal: Abdomen is soft, nontender, nondistended, with bowel sounds in all 4 quadrants. : She has no CVA nor suprapubic tenderness. Neurologic: She is alert and oriented x3. Labs: WBC is 5.3, with hemoglobin 10.6, hematocrit 33.5, platelets of 242,000. Sodium 142, potassium 4.5, BUN 38, creatinine 2.9, with a glucose of 146, albumin is 4.2. IMPRESSION: This is a 54-year-old female with: 1. Acute respiratory failure secondary to pulmonary edema, presumed flash, greatly improved. 2. Elevated troponins, followed by cardiology. 3. Acute kidney injury, improving, followed by Dr. Narvaez. 4. Diabetes mellitus type 2. 5. Hypertension. 6. Anemia. PLAN: 1. Cumulative negative balance is 9740, continuing IV diuresis. 2. Continue to monitor saturations. At present, the patient is tolerating room air well. 3. Hypokalemia. This is resolved. We will continue to trend labs and replete as appropriate. 4. We will continue home medications as per primary team. 5. For DVT prophylaxis, we will continue SCDs and GI prophylaxis, PPI. Dictated by LILIANA Ansari for Gomez Grover MD cc: LILIANA Ansari MD
[2019-12-05] MEDS: DESYREL PO SCH (20:49)
[2019-12-06] MEDS: ZOSYN 2.25 GM in NS 50 ML IV SCH ×4 (00:28→18:41)
[2019-12-06] MEDS: PROTONIX PO SCH (06:03)
[2019-12-06] MEDS: HUMULIN R SUBQ SCH ×4 (06:03→21:24)
--- NOTE | 2019-12-06 07:39 | Diag Imaging Result Doc PS360 ---
EXAM: CHEST-PORTABLE INDICATION: respiratory failure TECHNIQUE: One view COMPARISON: 12/05/2019 FINDINGS: Bibasilar infiltrates continue to improve and there is near resolution on the left. No new consolidation is identified. Cardiac silhouette is stable. IMPRESSION: Interval improvement as described. Electronically signed by Anthony Stevens 12/06/2019 7:37 AM
[2019-12-06] MEDS: PEPCID PO SCH (08:21)
[2019-12-06] MEDS: NORVASC PO SCH ×2 (08:21→21:23)
[2019-12-06] MEDS: ASPIRIN EC PO SCH (08:21)
[2019-12-06] MEDS: PAXIL PO SCH (08:21)
[2019-12-06] MEDS: LASIX IV SCH (08:21)
[2019-12-06] MEDS: ICAR-C PO SCH ×2 (08:21→21:23)
[2019-12-06 08:22] LABS: HEMATOCRIT 30.2 % (37.0-47.0); HEMOGLOBIN 9.6 g/dL (12.0-16.0); MCH 30.5 PG (27-31); MCHC 31.8 g/dL (33-37); MCV 95.9 FL (81-99); MPV 10.5 FL (7.4-10.4); RBC 3.15 XMIL (4.2-5.4); RDW 15.1 % (11.5-14.5); WBC 4.91 X1000 (4.8-10.8)
[2019-12-06] MEDS: TEFLARO 400 MG in NS 250 ML IV SCH (08:25)
[2019-12-06 09:12] LABS: ALBUMIN 4.3 g/dL (3.5-5.0); CALCIUM 8.6 mg/dL (8.8-10.2); CREATININE 3.2 mg/dL (0.5-0.9); PHOSPHORUS 5.9 mg/dL (2.7-4.5); POTASSIUM 3.7 mmol/L (3.5-5.1)
--- NOTE | 2019-12-06 15:44 | PROVIDER PROGRESS NOTE ---
Progress Note Subjective: she voices feeling better today. She is off her nasal cannula oxygen. Denies any uremic complaints. Objective: temperature 98.1, pulse 98, respirations 16, blood pressure 126/70, 02 sat 97% on room air. General: white female lying in bed in no obvious distress. HEENT: normocephalic, atraumatic, pupils equal and reactive, conjunctiva are pink, mucous membranes moist. Skin: warm and dry. Neck: supple, no JVD appreciated. Cardiovascular: s1S2, regular rate and rhythm. No murmur or gallop. Respiratory: clear to auscultation anteriorly Abdomen: soft, nontender, nondistended. Bowel sounds present. : non inspected, koenig in place Extremities: no clubbing or cyanosis.1+ edema BLE. Neurological: alert and oriented to person, place, and time. Labs: Wbc 4.91, hemoglobin 9.6, hematocrit 30.2, platelet count 226, sodium 144, potassium 3.7, chloride 95, carbon dioxide 29, BUN 42, creatinine 3.2 phosphorus 5.9. Intake 900, output 3050. Impression: Acute kidney injury. Acute tubular necrosis. Slow recovery from rhabdomyolysis. BUN and Creatinine Stable. She denies any uremic complaints. Blood pressure.In target. Fluid volume. Euvolemic. Anemia. Low, but stable. Does not meet transfusion criteria. Hyperphosphatemia. We will repeat her phosphorus tomorrow. If it remains high, we will start calcium acetate. Anion gap acidosis. We will check an acetone. Nutrition. Adequate. Ambulation. PT ordered. Medication review. No changes.
--- NOTE | 2019-12-06 17:02 | PROGRESS NOTE ---
DATE: 12/06/2019 SUBJECTIVE: I have seen and examined Ms. Galindo. She refers to be doing a lot better. Denies any new complaints. OBJECTIVE: Vital signs: Blood pressure is 96/74, pulse of 103, respirations 20, temperature 98.3 degrees. General: Ms. Galindo is a 54-year-old female. She is in bed. No distress. HEENT: Mucosa is pink and moist. Anicteric. Acyanotic. Neck: Supple. Chest: Good air entry bilaterally. There were no crepitations and no rhonchi. Cardiovascular: Regular rate and rhythm. No murmurs. No rubs. No gallops. GI: Abdomen is soft, nontender. Bowel sounds present. Extremities: No pedal edema. RN ADVANCED: Patient is awake, alert, and oriented. LABORATORY DATA: WBC is 4.91, hemoglobin is 9.6, platelet count of 226,000. Chemistry is also reviewed. Creatinine is 3.2. Rest of chemistry is unremarkable. ASSESSMENT: 1. Acute hypoxemic respiratory failure on presentation secondary to pulmonary edema. 2. Elevated troponin, most likely from demand mismatch and kidney failure. 3. Acute kidney failure, improving. 4. Pneumonia. Patient is on antimicrobial coverage. Follow-up chest x-ray is improving. 5. Diabetes mellitus. 6. Hypertension. 7. Dyslipidemia. The patient was on was on simvastatin. However, this has been discontinued because of recent episode of rhabdomyolysis. cc: Calderon Sanchez MD
--- NOTE | 2019-12-06 18:59 | PROGRESS NOTE ---
DATE: 12/06/2019 SUBJECTIVE: Patient denies shortness of breath and reports feeling much better on room air following further diuresis. There has been no chest pain. OBJECTIVE: Vital Signs: Blood pressure 115/67, heart rate 95, oxygen saturation 98 to 100 percent on room air. There is no significant jugular venous distention. Chest: Clear to auscultation. Cardiac: Reveals a regular rate and rhythm without appreciable murmur or gallop. Extremities: Without edema. DIAGNOSTIC DATA: Chest x-ray reviewed and shows clearing of pulmonary edema. Cardiac silhouette normal in size. LABORATORY DATA: Includes white blood cell count of 4.91, hematocrit 30.2 hemoglobin 9.6, platelet count 226,000. Sodium 144, potassium 3.7, chloride 95, carbon dioxide 29, BUN 42, creatinine 3.2, glucose 137. IMPRESSION: 1. Recent mild elevation in troponin in the setting of rhabdomyolysis and renal dysfunction. Suspect noncardiac etiology of troponin and underlying culprit is rhabdomyolysis. 2. Recent volume overload, pulmonary edema in the setting of renal dysfunction. I suspect she probably went home from recent discharge with some element of volume overload. Clinically this does not appear to have been flash pulmonary edema. She has preserved left ventricular systolic function. 3. Recent rhabdomyolysis of unclear etiology. Cannot exclude contribution of recent statin therapy. Crestor discontinued. 4. Type 2 diabetes mellitus. 5. Hypertension. 6. Hyperlipidemia. 7. Anxiety disorder. RECOMMENDATIONS: 1. Reduce Lasix to oral Lasix once daily. 2. Continue to leave off statin therapy. 3. Reasonable for patient to be discharged to home soon from a cardiac standpoint. cc: Dakota Leblanc MD
[2019-12-06] MEDS: DESYREL PO SCH (21:23)
[2019-12-07] MEDS: ZOSYN 2.25 GM in NS 50 ML IV SCH ×2 (00:08→06:10)
[2019-12-07] MEDS: HUMULIN R SUBQ SCH ×2 (06:02→12:05)
[2019-12-07] MEDS: PROTONIX PO SCH (06:10)
--- NOTE | 2019-12-07 06:38 | Diag Imaging Result Doc PS360 ---
EXAM: CHEST-PORTABLE HISTORY: respiratory failure TECHNIQUE: Single view COMPARISON: 12/06/2019 FINDINGS: Poor inspiratory effort. No cardiomegaly. There is a small left effusion. There is atelectasis and/or infiltrates in the lingular segment of the left upper lobe and laterally in the lower lobe. The right lung contains a small right basilar infiltrate. IMPRESSION: Mild interval worsening Electronically signed by Minesh Eagle 12/07/2019 6:36 AM
[2019-12-07 07:23] VITALS: BP 109/51
[2019-12-07 07:49] LABS: HEMATOCRIT 28.5 % (37.0-47.0); HEMOGLOBIN 9.2 g/dL (12.0-16.0); MCH 31.4 PG (27-31); MCHC 32.3 g/dL (33-37); MCV 97.3 FL (81-99); MPV 10.8 FL (7.4-10.4); RBC 2.93 XMIL (4.2-5.4); RDW 14.9 % (11.5-14.5); WBC 4.78 X1000 (4.8-10.8)
[2019-12-07 08:23] LABS: ALBUMIN 4.2 g/dL (3.5-5.0); CALCIUM 8.9 mg/dL (8.8-10.2); CREATININE 3.2 mg/dL (0.5-0.9); POTASSIUM 3.4 mmol/L (3.5-5.1)
[2019-12-07] MEDS: ICAR-C PO SCH (08:35)
[2019-12-07] MEDS: PAXIL PO SCH (08:35)
[2019-12-07] MEDS: NORVASC PO SCH (08:35)
[2019-12-07] MEDS: PEPCID PO SCH (08:35)
[2019-12-07] MEDS: ASPIRIN EC PO SCH (08:35)
[2019-12-07] MEDS ORDERED: LASIX PO SCH (09:00)
[2019-12-07] MEDS ORDERED: LASIX IV SCH (09:00)
--- NOTE | 2019-12-08 08:42 | DISCHARGE SUMMARY ---
ADMISSION DATE: 12/01/2019 DISCHARGE DATE: 12/07/2019 DISPOSITION: Home. FOLLOW-UP: 1. Dr. Narvaez. 2. Dr. Leblanc. 3. Dr. Rozina Mirza. CONSULTATION DURING THIS ADMISSION: Cardiology was consulted. Patient was seen by Dr. Wilder. Nephrology was consulted. Patient was seen by Dr. Narvaez. INVASIVE PROCEDURES DONE DURING THIS ADMISSION: None. IMAGING STUDIES OF SIGNIFICANT: A chest x-ray did show worsening pulmonary edema. A CT scan of the chest showed pulmonary edema and/or pneumonia with bilateral pleural effusions and anasarca, mediastinal adenopathy. Multiple chest x-rays were done subsequently, the one done this morning showed mild interval worsening. An limited echocardiogram showed that it was limited being significantly tachycardic making ejection fraction difficult to estimate. ADMISSION DIAGNOSES: 1. Acute pulmonary edema. 2. Elevated troponin. 3. Acute kidney injury. 4. Status post recent treatment for rhabdomyolysis. 5. Diabetes mellitus. DIAGNOSES AT THE TIME OF DISCHARGE: 1. Acute hypoxemic respiratory failure on presentation secondary to pulmonary edema. 2. Elevated troponin secondary to demand mismatch and renal failure. 3. Acute kidney injury presumably from rhabdomyolysis-induced acute tubular necrosis. 4. Multifocal pneumonia, presumably aspiration. 5. Diabetes mellitus. 6. Hypertension. 7. Dyslipidemia. The patient's statin therapy was discontinued because of rhabdomyolysis. DISCHARGE MEDICATIONS: 1. Aspirin 81 mg p.o. daily. 2. Paroxetine 20 mg p.o. daily. 3. Trazodone 50 mg p.o. at bedtime. 4. Amlodipine 5 mg b.i.d. 5. Iron 1 tablet b.i.d. 6. Januvia 500 p.o. daily. 7. Pantoprazole 40 mg p.o. daily. 8. Furosemide 40 mg p.o. daily. 9. Augmentin 1 tablet b.i.d. 10. Metronidazole 250 p.o. 3 times per day. PRESENTING COMPLAINT: Shortness of breath. HISTORY OF PRESENTING COMPLAINT: Ms. Galindo is a 54-year-old female, who presented to the emergency department because of acute onset of shortness of breath, was evaluated, was found to be in acute pulmonary edema, and was admitted for further medical care. Of note, Ms. Galindo was just discharged from the hospital a day prior to this current admission. Upon presentation, she was evaluated including imaging studies, which revealed worsening pulmonary edema. Ms Galindo was admitted to the Critical Care Unit. HOSPITAL COURSE: Ms. Galindo was admitted to the Critical Care Unit, was initially started on IV diuretic therapy, antimicrobial therapy. Both Cardiology and Nephrology were consulted, and patient was seen accordingly. During the hospital course, Ms. Galindo continued to show steady improvement. She became negative balance of 13,080 throughout the hospital course. Her IV diuretics were all titrated to p.o. Her kidney in function, however, remained fairly the same at 3.2. Ms. Galindo continues to make adequate urine. Throughout the hospital course, she did show signs of improvement with not needing any more supplemental oxygen. Today, she refers to feel better. No shortness of breath. No coughing. Her vitals are stable. We think she is in stable condition to be discharged. She will need to follow up with her primary care doctor as well as Nephrology and Cardiology. All the discharge instructions have been discussed with Ms. Galindo including the fact that her statin has been discontinued because of the rhabdomyolysis. She voiced understanding. TIME SPENT FOR THIS DISCHARGE: 35 minutes. cc: MD Rozina Enciso MD Reginald D. Gladish, MD William D. Denney, MD
== END 2019-12-07 13:27 | disposition home or self-care (01) | DRG 177 ==
LOC: ED 17:19 → EDIPHOLD 23:03 → SUATTDRO 23:03 → 2N 12-02 12:16 → ICU 12-02 18:56 → 3N 12-05 17:55
PROVIDERS: ATTEND Internal Medicine